=== PATIENT | female | born 1985 | race Hispanic/Latino ===

== ENCOUNTER 2018-11-11 19:01 | Emergency (ER) | payer OTHER ==
[2018-11-11] MEDS ORDERED: NA CHLORIDE 0.9% 1,000 ML ONE ×2 (19:52→19:59)
[2018-11-11] MEDS ORDERED: ONDANSETRON 4 MG/2 ML VIAL ONE (19:59)
[2018-11-11 20:06] LABS: Absolute Lymphocytes (CBC) 1.3 K/uL (0.7-4.9); Absolute Monocytes 0.6 K/uL (0.1-1.3); Absolute Neutrophil 3.4 K/uL (1.8-8.0); Basophils % 0.2 % (0-1.3); Eosinophils % 0.6 % (0-4.4); Hematocrit 35.7 % (36.0-45.0); Lymphocytes % 24.8 % (15.3-44.8); MPV 9.7 fL (7.6-11.3); Monocytes % 11.2 % (3.3-12.3); RBC Red Blood Cell Count 3.92 M/uL (3.86-4.86)
[2018-11-11 20:36] LABS: BUN Blood Urea Nitrogen 4 mg/dL (7-18); Bicarbonate 24 mmol/L (21-32); Glucose Level 86 mg/dL (74-106); HCG, Quantitative 30743 mIU/mL (1-3); Potassium 3.5 mmol/L (3.5-5.1); Sodium Level 138 mmol/L (136-145)
[2018-11-11 21:08] LABS: Urine Specific Gravity 1.015 (1.005-1.030)
[2018-11-11 21:09] LABS: Urine Blood NEGATIVE (NEG); Urine Glucose NEGATIVE (NEG); Urine Protein NEGATIVE (NEG)
--- NOTE | 2018-11-11 21:31 | ER ---
Nurse's Notes [facility] Name: Tawnya Vogel Age: 33 yrs Sex: Female : 1985 Arrival Date: 11/11/2018 Time: 19:03 Bed 13 Private MD: Lyric Aguirre Diagnosis: Dizziness and giddiness; related conditions, unspecified, second trimester;Vomiting;Diarrhea, unspecified Presentation: 11/11 19:05 Presenting complaint: Patient states: abdominal cramping, nausea, vomiting, cough, ch light headed, for the past 2 days. Transition of care: patient was not received from another setting of care. Onset of symptoms was November 09, 2018. Risk Assessment: Do you want to hurt yourself or someone else? Patient reports no desire to harm self or others. Initial Sepsis Screen: Does the patient meet any 2 criteria? No. Patient's initial sepsis screen is negative. Does the patient have a suspected source of infection? No. Patient's initial sepsis screen is negative. Care prior to arrival: None. 19:05 Method Of Arrival: Ambulatory 19:05 Acuity: ANTONIO 3 ch Triage Assessment: 19:06 General: Appears in no apparent distress. comfortable, Behavior is calm, cooperative, ch appropriate for age. Pain: Complains of pain in abdomen. Pain: Complains of pain in head, abdomen and back Pain currently is 6 out of 10 on a pain scale. GI: Reports lower abdominal pain, upper abdominal pain, nausea, vomiting. 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 - Social history:: Smoking status: Patient/guardian denies using tobacco, Patient/guardian denies using alcohol, street drugs. - Ebola Screening: : Patient negative for fever greater than or equal to 101.5 degrees Fahrenheit, and additional compatible Ebola Virus Disease symptoms Patient denies exposure to infectious person Patient denies travel to an Ebola-affected area in the 21 days before illness onset No symptoms or risks identified at this time. - Family history:: not pertinent. Screenin:05 Abuse screen: Denies threats or abuse. Nutritional screening: No deficits noted. tl2 Tuberculosis screening: No symptoms or risk factors identified. Fall Risk None identified. Assessment: 20:00 General: Appears in no apparent distress. uncomfortable, Behavior is calm, cooperative, tl2 appropriate for age. General: pt reports dizziness and vomiting if she moves her head too fast. Pain: Complains of pain in headache. Neuro: Level of Consciousness is awake, alert, obeys commands, Oriented to person, place, time, situation, Reports dizziness, headache. Cardiovascular: Denies chest pain. Respiratory: Airway is patent Respiratory effort is even, unlabored, Respiratory pattern is regular, symmetrical. GI: Abdomen is non-distended, Reports nausea, vomiting. Derm: Skin is pink, warm \T\ dry. 21:26 Reassessment: Patient appears in no apparent distress at this time. Patient and/or tl2 family updated on plan of care and expected duration. Pain level reassessed. Patient is alert, oriented x 3, equal unlabored respirations, skin warm/dry/pink. Awaiting lab results and further orders. 21:26 Reassessment:. tl2 21:50 Reassessment: Patient appears in no apparent distress at this time. Patient and/or tl2 family updated on plan of care and expected duration. Pain level reassessed. Patient is alert, oriented x 3, equal unlabored respirations, skin warm/dry/pink. pt verbalized understanding of discharge instructions, need for follow up and prescription usage Patient states feeling better. Patient states symptoms have improved. Vital Signs: 19:06 BP 138 / 100; Pulse 122; Resp 18; Temp 98.8; Pulse Ox 100% on R/A; Weight 101.6 kg; ch Height 4 ft. 11 in. (149.86 cm); Pain 6/10; 20:07 BP 123 / 69; Pulse 97; Resp 18; Pulse Ox 100% on R/A; tl2 21:50 BP 141 / 86; Pulse 72; Resp 18; Pulse Ox 100% on R/A; tl2 19:06 Body Mass Index 45.24 (101.60 kg, 149.86 cm) ch Vitals: 20:05 Heart Tones 150. tl2 ED Course: 19:03 Patient arrived in ED. as 19:03 Lyric Aguirre MD is Private Physician. as 19:06 Triage completed. 19:06 Arm band placed on left wrist. Patient placed in an exam room, on a stretcher. 19:37 Initial lab(s) drawn, by ri, sent to lab. Urine collected: clean catch specimen, clear. ms Inserted saline lock: 20 gauge in right antecubital area, using aseptic technique. Blood collected. 19:40 Elmira Guo RN is Primary Nurse. tl2 19:42 Byron Jones MD is Attending Physician. romulo 20:05 Patient has correct armband on for positive identification. Bed in low position. Call tl2 light in reach. Side rails up X 1. 21:29 Lyric Aguirre MD is Referral Physician. romulo 21:50 No provider procedures requiring assistance completed. IV discontinued, intact, tl2 bleeding controlled, No redness/swelling at site. Pressure dressing applied. Administered Medications: 19:48 Drug: NS 0.9% 1000 ml Route: IV; Rate: 1 bolus; Site: right antecubital; tl1 21:52 Follow up: IV Status: Completed infusion; IV Intake: 1000ml tl2 19:58 Drug: NS 0.9% 1000 ml Route: IV; Rate: 1 bolus; Site: right antecubital; tl1 21:51 Follow up: IV Status: Completed infusion; IV Intake: 1000ml tl2 19:58 Drug: Zofran 4 mg Route: IVP; Infused Over: 2 mins; Site: right antecubital; tl1 21:52 Follow up: Response: No adverse reaction; Nausea is decreased tl2 Intake: 21:51 IV: 1000ml; Total: 1000ml. tl2 21:52 IV: 1000ml; Total: 2000ml. tl2 Outcome: 21:30 Discharge ordered by . romulo 21:50 Discharged to home ambulatory, with family. tl2 21:50 Condition: stable 21:50 Discharge instructions given to patient, Instructed on discharge instructions, follow up and referral plans. medication usage, Demonstrated understanding of instructions, follow-up care, medications, Prescriptions given X 1. 21:53 Patient left the ED. tl2 Signatures: Ninfa Peterson RN RN Byron Jones MD MD cha Martinez, Amelia as Solis, Maria ms Lasagna, Tonya, RN RN tl1 Elmira Guo, RN RN tl2
--- NOTE | 2018-11-11 21:31 | EDPHYS ---
Physician Documentation [facility] Name: Tawnya Vogel Age: 33 yrs Sex: Female : 1985 Arrival Date: 11/11/2018 Time: 19:03 Bed 13 Private MD: Lyric Aguirre ED Physician Byron Jones HPI: 11/11 21:25 This 33 yrs old Female presents to ER via Ambulatory with complaints of romulo Dizziness, Vomiting, Headache, Abdominal Pain. 21:25 The patient presents with dizziness. Onset: The symptoms/episode began/occurred 3 romulo day(s) ago. Context: occurred while the patient was walking. Modifying factors: The symptoms are alleviated by standing slowly. Associated signs and symptoms: Pertinent positives: nausea, vomiting. Severity of symptoms: At their worst the symptoms were mild in the emergency department the symptoms are unchanged. Patient's baseline: Neuro: alert and fully oriented. The patient has not experienced similar symptoms in the past. 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 - Social history:: Smoking status: Patient/guardian denies using tobacco, Patient/guardian denies using alcohol, street drugs. - Ebola Screening: : Patient negative for fever greater than or equal to 101.5 degrees Fahrenheit, and additional compatible Ebola Virus Disease symptoms Patient denies exposure to infectious person Patient denies travel to an Ebola-affected area in the 21 days before illness onset No symptoms or risks identified at this time. - Family history:: not pertinent. ROS: 21:25 Constitutional: Negative for fever, chills, and weight loss, Eyes: Negative for injury, romulo pain, redness, and discharge, ENT: Negative for injury, pain, and discharge, Neck: Negative for injury, pain, and swelling, Cardiovascular: Negative for chest pain, palpitations, and edema, Respiratory: Negative for shortness of breath, cough, wheezing, and pleuritic chest pain, Back: Negative for injury and pain, : Negative for injury, bleeding, discharge, and swelling, MS/Extremity: Negative for injury and deformity, Skin: Negative for injury, rash, and discoloration, Neuro: Negative for headache, weakness, numbness, tingling, and seizure, Psych: Negative for depression, anxiety, suicide ideation, homicidal ideation, and hallucinations, Allergy/Immunology: Negative for hives, rash, and allergies, Endocrine: Negative for neck swelling, polydipsia, polyuria, polyphagia, and marked weight changes, Hematologic/Lymphatic: Negative for swollen nodes, abnormal bleeding, and unusual bruising. 21:25 Abdomen/GI: Positive for nausea and vomiting, diarrhea. Exam: 21:25 Constitutional: This is a well developed, well nourished patient who is awake, alert, romulo and in no acute distress. Head/Face: Normocephalic, atraumatic. Eyes: Pupils equal round and reactive to light, extra-ocular motions intact. Lids and lashes normal. Conjunctiva and sclera are non-icteric and not injected. Cornea within normal limits. Periorbital areas with no swelling, redness, or edema. ENT: Nares patent. No nasal discharge, no septal abnormalities noted. Tympanic membranes are normal and external auditory canals are clear. Oropharynx with no redness, swelling, or masses, exudates, or evidence of obstruction, uvula midline. Mucous membranes moist. Neck: Trachea midline, no thyromegaly or masses palpated, and no cervical lymphadenopathy. Supple, full range of motion without nuchal rigidity, or vertebral point tenderness. No Meningismus. Chest/axilla: Normal chest wall appearance and motion. Nontender with no deformity. No lesions are appreciated. Cardiovascular: Regular rate and rhythm with a normal S1 and S2. No gallops, murmurs, or rubs. Normal PMI, no JVD. No pulse deficits. Respiratory: Lungs have equal breath sounds bilaterally, clear to auscultation and percussion. No rales, rhonchi or wheezes noted. No increased work of breathing, no retractions or nasal flaring. Abdomen/GI: Soft, non-tender, with normal bowel sounds. No distension or tympany. No guarding or rebound. No evidence of tenderness throughout. Back: No spinal tenderness. No costovertebral tenderness. Full range of motion. Female : Normal external genitalia. Skin: Warm, dry with normal turgor. Normal color with no rashes, no lesions, and no evidence of cellulitis. MS/ Extremity: Pulses equal, no cyanosis. Neurovascular intact. Full, normal range of motion. Neuro: Awake and alert, GCS 15, oriented to person, place, time, and situation. Cranial nerves II-XII grossly intact. Motor strength 5/5 in all extremities. Sensory grossly intact. Cerebellar exam normal. Normal gait. Psych: Awake, alert, with orientation to person, place and time. Behavior, mood, and affect are within normal limits. Vital Signs: 19:06 BP 138 / 100; Pulse 122; Resp 18; Temp 98.8; Pulse Ox 100% on R/A; Weight 101.6 kg; ch Height 4 ft. 11 in. (149.86 cm); Pain 6/10; 20:07 BP 123 / 69; Pulse 97; Resp 18; Pulse Ox 100% on R/A; tl2 21:50 BP 141 / 86; Pulse 72; Resp 18; Pulse Ox 100% on R/A; tl2 19:06 Body Mass Index 45.24 (101.60 kg, 149.86 cm) MDM: 19:42 Patient medically screened. [facility] 21:29 Data reviewed: vital signs, nurses notes, lab test result(s), radiologic studies, [facility] 150b/m. 11/11 19:40 Order name: Urine Dipstick--Ancillary (enter results); Complete Time: 21:11 wa 11/11 19:40 Order name: Urine --Ancillary (enter results); Complete Time: 21:11 wa 11/11 19:40 Order name: Quantitative Hcg; Complete Time: 21:11 [facility] 11/11 19:40 Order name: Basic Metabolic Panel; Complete Time: 21:11 [facility] 11/11 19:40 Order name: CBC with Diff; Complete Time: 21:11 [facility] 11/11 19:40 Order name: Urine Test (obtain specimen); Complete Time: 19:41 2 11/11 19:40 Order name: IV Saline Lock; Complete Time: 19:41 2 11/11 19:40 Order name: Labs collected and sent; Complete Time: 19:41 2 11/11 19:40 Order name: NPO; Complete Time: 19:41 2 11/11 19:40 Order name: Urine Dipstick-Ancillary (obtain specimen); Complete Time: 19:41 tl2 11/11 19:43 Order name: FHT's; Complete Time: 20:07 [facility] Administered Medications: 19:48 Drug: NS 0.9% 1000 ml Route: IV; Rate: 1 bolus; Site: right antecubital; tl1 21:52 Follow up: IV Status: Completed infusion; IV Intake: 1000ml tl2 19:58 Drug: NS 0.9% 1000 ml Route: IV; Rate: 1 bolus; Site: right antecubital; tl1 21:51 Follow up: IV Status: Completed infusion; IV Intake: 1000ml tl2 19:58 Drug: Zofran 4 mg Route: IVP; Infused Over: 2 mins; Site: right antecubital; tl1 21:52 Follow up: Response: No adverse reaction; Nausea is decreased tl2 Disposition: 11/11/18 21:30 Discharged to Home. Impression: Dizziness and giddiness, related conditions, unspecified, second trimester, Vomiting, Diarrhea, unspecified. - Condition is Stable. - Discharge Instructions: Abdominal Pain During , Food Choices to Help Relieve Diarrhea, Adult, Diarrhea, Adult, Dizziness, Nausea and Vomiting, Adult, Nausea and Vomiting, Adult, [id number], Diarrhea, Adult, [id number], Abdominal Pain During , [id number], Pelvic Rest, Dizziness, [id number]. - Prescriptions for Diclegis 10- 10 mg Oral tablet,delayed release (DR/EC) - take 1 tablet by ORAL route 3 times per day and 2 tablets at bedtime; 60 tablet. - Medication Reconciliation Form, Thank You Letter, Antibiotic Education, Prescription Opioid Use form. - Follow up: Lyric Aguirre MD; When: 2 - 3 days; Reason: Recheck today's complaints, Continuance of care, Re-evaluation by your physician. - Problem is new. - Symptoms have improved. Signatures: Dispatcher [employer] EDNinfa He, RN Byron Padilla ch, MD MD cha Lasagna, Tonya RN RN tl1 Elmira Guo RN RN tl2 Corrections: (The following items were deleted from the chart) 21:53 21:30 11/11/2018 21:30 Discharged to Home. Impression: Dizziness and giddiness; tl2 related conditions, unspecified, second trimester; Vomiting; Diarrhea, unspecified. Condition is Stable. Forms are Medication Reconciliation Form, Thank You Letter, Antibiotic Education, Prescription Opioid Use. Follow up: Lyric Aguirre; When: 2 - 3 days; Reason: Recheck today's complaints, Continuance of care, Re-evaluation by your physician. Problem is new. Symptoms have improved. romulo
[2018-11-11 21:58] VITALS: TEMP 98.8; O2SAT 100
[2018-11-11 22:01] VITALS: BP 141/86
== END 2018-11-11 21:53 | disposition home or self-care (01) ==
LOC: ER 19:01
DX: O21.9 Vomiting of pregnancy, unspecified (principal); R19.7 Diarrhea, unspecified; Z88.0 Allergy status to penicillin; Z88.5 Allergy status to narcotic agent
CPT/HCPCS: 36415; 80048; 81003; 81025; 84702; 85025; 96361; 96374; 99284; J2405; J7030

== ENCOUNTER 2019-04-12 10:04 | Inpatient (IN) | payer OTHER ==
[2019-04-11 16:45] LABS: RPR Titer ND
[2019-04-11 16:54] LABS: Absolute Lymphocytes (CBC) 1.9 K/uL (0.7-4.9); Absolute Monocytes 0.5 K/uL (0.1-1.3); Absolute Neutrophil 4.8 K/uL (1.8-8.0); Basophils % 0.3 % (0-1.3); Eosinophils % 0.6 % (0-4.4); Hematocrit 34.7 % (36.0-45.0); Lymphocytes % 26.2 % (15.3-44.8); Monocytes % 6.6 % (3.3-12.3); RBC Red Blood Cell Count 3.99 M/uL (3.86-4.86)
[2019-04-11 16:55] LABS: Urine Appearance CLOUDY; Urine Bilirubin NEGATIVE (NEG); Urine Blood NEGATIVE (NEG); Urine Color YELLOW; Urine Glucose NEGATIVE (NEG); Urine Protein NEGATIVE (NEG); Urine Specific Gravity 1.015 (1.005-1.030); Urine Urobilinogen 0.2 mg/dL (0.2-1.0)
[2019-04-11 16:58] LABS: Urine Microscopic Reflex ORDER UMIC
[2019-04-11 17:06] LABS: Urine Bacteria 20-50 /HPF (<20); Urine Culture Reflex Order REFLEXED; Urine Mucus 2+ /HPF (NONE SEEN); Urine RBC <5 /HPF (NONE SEEN)
[2019-04-11 20:59] LABS: RPR (Rapid Plasma Reagin) NON-REACT (NON-REACT)
[~2019-04-12 10:04] MED LIST: CEFAZOLIN 3 GM in NA CHLORIDE 0.9% 100 ML IVPB ONE
[2019-04-12] MEDS ORDERED: NA CIT/CITRIC AC 30 ML ORAL UDC PO ONE (10:45)
[2019-04-12] MEDS ORDERED: Ringers Lactate 1,000 ML IV PRN (10:51)
[2019-04-12] MEDS ORDERED: METOCLOPRAMIDE 10 MG/2mL INJ IV SCH (11:00)
[2019-04-12] MEDS ORDERED: Ringers Lactate 1,000 ML IV SCH (11:00)
[2019-04-12] MEDS ORDERED: FAMOTIDINE 20 MG/2 ML VIAL IV ONE (11:17)
[2019-04-12] MEDS ORDERED: CARBOPROST TROME 250 MCG/ML IM ONE (11:17)
[2019-04-12 11:36] VITALS: BMI 45.4
--- NOTE | 2019-04-12 11:36 | EKG ---
Test Date: 2019-04-12 Test Time: 10:02:22 Operating Room Technician: ROBERTO MEASUREMENT RESULTS: Intervals: Rate: 111 AK: 156 QRSD: 80 QT: 322 QTc: 437 [place]: P: 28 AK: 156 QRS: -17 T: 16 INTERPRETIVE STATEMENTS: Sinus tachycardia Moderate voltage criteria for LVH, may be normal variant Borderline ECG No previous ECG available for comparison Electronically Signed On 04-12-19 11:35:26 CDT by Matheus Tarango
[2019-04-12] MEDS ORDERED: FENTANYL CITR 250 MCG/5 ML ONE (11:45)
[2019-04-12] MEDS ORDERED: Phenylephrine HCl 10 MG/ML 1 ML VIAL ONE (11:45)
[2019-04-12] MEDS ORDERED: EPHEDRINE SULF 50 MG/ML VIAL ONE (11:45)
[2019-04-12] MEDS ORDERED: MORPHINE SULFATE/PF 1 MG/ML (10 ML AMP) ONE (11:45)
[2019-04-12] MEDS ORDERED: NS 0.9% VIAL 20 ML ONE (11:46)
[2019-04-12] MEDS ORDERED: OXYTOCIN 10 UNIT/ML ML IV ONE (11:46)
[2019-04-12] MEDS ORDERED: METHYLERGONOVINE 0.2MG/ML AMP IM ONE (12:51)
[2019-04-12] MEDS ORDERED: ACETAMINOPHEN 500 MG TAB PO PRN (13:22)
[2019-04-12] MEDS ORDERED: BISACODYL 10 MG RECTAL SUPP RECT PRN (13:22)
[2019-04-12] MEDS ORDERED: ONDANSETRON 4 MG (ODT) TAB PO PRN (13:22)
[2019-04-12] MEDS ORDERED: DOCUSATE NA/SENNA CONC 1 TAB PO PRN (13:22)
[2019-04-12] MEDS ORDERED: METHYLERGONOVINE 0.2 MG TAB PO PRN (13:22)
[2019-04-12] MEDS ORDERED: KETOROLAC 30 MG/ML INJ IV PRN (13:24)
[2019-04-12] MEDS ORDERED: IBUPROFEN 200 MG TAB PO PRN (13:24)
[2019-04-12] MEDS: Oxycodone HCl/Acetaminophen 1 TAB TAB PO PRN (20:20)
--- NOTE | 2019-04-12 22:19 | P.OP ---
Radiopharmacist: Chelsea Bernard Preoperative diagnosis: 37 weeks 5 days gestation with severe proteinurina, preeclampsia and breech Postoperative diagnosis: same Primary procedure: Primary low transverse section Secondary procedure: none Anesthesia: Spinal Estimated blood loss: 800cc Specimen: cord blood, placenta Findings: footling breech presentation Operative Technique: The patient was taken to the operating room where spinal anesthesia was placed. 3 grams of ancef were given to the patient. Abdominal skin was taped back. The patient was prepped and draped in the usual sterile fashion in the dorsal supine position with a left-anderson tilt. A Pfannenstiel skin incision was made with the scalpel and carried through to the underlying layer of fascia using the scalpel and Bovie. The fascia was incised in the midline and extended laterally using Burns scissors. Letty clamps were used to elevate the superior aspect of the fascial incision, which was elevated, and the underlying rectus muscles were dissected off bluntly and using Burns scissors. Attention was then turned to the inferior aspect of the fascial incision, which in similar fashion was grasped with Letty clamps, elevated, and the underlying rectus muscles were dissected off bluntly and using Burns scissors. The rectus muscles were dissected in the midline. The peritoneum was bluntly dissected, entered, and extended superiorly and inferiorly with good visualization of the bladder. The bladder blade was inserted. The vesicouterine peritoneum was identified with pickups and entered sharply using Metzenbaum scissors. This incision was extended laterally and the bladder flap was created digitally. The bladder blade was reinserted. The lower uterine segment was incised in a transverse fashion using the scalpel and extended using manual traction. Clear fluid was noted. The was subsequently delivered atraumatically in footling breech presentation. The nose and mouth were bulb suctioned. The cord was clamped and cut. The infant was subsequently handed to the awaiting nursery nurse. Next, cord blood was obtained.The placenta was removed spontaneously intact with a 3-vessel cord noted. The uterus was not exteriorized due to large size of uterus from fibroids as well as operative difficulty due to obesity. The uterine incision was repaired in 2 layers using 0 vicryl suture. Hemostasis was visualized. The bladder flap was reapproximated using 3.0 vicryl. The uterine incision was reexamined and was noted to be hemostatic. The rectus muscles were reapproximated in the midline using 0 Vicryl. The fascia was closed with 1 Vicryl, the subcutaneous layer was closed with 2-0 plain gut, and the skin was closed with 3.0 vicryl on a Jean Claude needle. Sponge, lap, and instrument counts were correct x2. The patient was stable at the completion of the procedure and was subsequently transferred to the recovery room in stable condition. Complications: None Drain(s): Urinary catheter Transferred to: Recovery Room Condition: Good
[2019-04-12] MEDS ORDERED: Ringers Lactate 1,000 ML IV ONE (23:17)
[2019-04-13] MEDS ORDERED: Ringers Lactate 1,000 ML IV ONE ×2 (00:13→06:52)
[2019-04-13] MEDS: ENOXAPARIN 40 MG/0.4 ML SQ SCH (01:19)
[2019-04-13] MEDS: Oxycodone HCl/Acetaminophen 1 TAB TAB PO PRN ×3 (03:37→22:13)
[2019-04-13 04:43] LABS: Absolute Lymphocytes (CBC) 1.4 K/uL (0.7-4.9); Absolute Monocytes 0.8 K/uL (0.1-1.3); Absolute Neutrophil 7.4 K/uL (1.8-8.0); Basophils % 0.3 % (0-1.3); Eosinophils % 0.2 % (0-4.4); Hematocrit 28.5 % (36.0-45.0); Lymphocytes % 14.4 % (15.3-44.8); MPV 9.2 fL (7.6-11.3); Monocytes % 8.5 % (3.3-12.3); RBC Red Blood Cell Count 3.28 M/uL (3.86-4.86)
[2019-04-13] MEDS ORDERED: FAMOTIDINE 20 MG/2 ML VIAL IV ONE (10:46)
--- NOTE | 2019-04-13 22:06 | P.PN ---
Date of Service: 04/13/19 Patient is s/p primary section post op day 1. She is doing well. She is tolerating a regular diet, voiding without difficulty , and ambulating. Her pain is well controlled. She received lovenox 12 hours postop. Selected Entries 04/13/19 04/13/19 04/13/19 04:00 04:37 07:58 Temperature 98.0 F 97.5 F Pulse Rate 107 H 119 H Respiratory 18 16GEN: Rate Blood Pressure 133/59 L 125/58 L Pain Level 7 0 0 Laboratory Tests 04/11/19 04/13/19 16:33 04:29 WBC 7.2 9.7 D Hgb 11.6 L 9.7 L Hct 34.7 L 28.5 L D Plt Count 261 211 GEN: resting comfortably Head/Neck: NCAT, supple Resp: symmetric non-labored breathing Abdomen: obese, soft, NT, ND, dressing in place Extremities: +1 edema bilaterally 33 y/o s/p primary section, morbidly obese female who is post op day 1 and doing well. Complicated by anemia. - continue pain management - regular diet - ambulate - dwyer and IV removed - possible d/c home tomorrow
[2019-04-14] MEDS ORDERED: KETOROLAC 30 MG/ML INJ IM ONE (07:21)
[2019-04-14] MEDS ORDERED: ACETAMINOPHEN 325 MG TABLET PO ONE (07:21)
[2019-04-14 07:59] LABS: Absolute Lymphocytes (CBC) 1.5 K/uL (0.7-4.9); Absolute Monocytes 0.9 K/uL (0.1-1.3); Absolute Neutrophil 7.6 K/uL (1.8-8.0); Basophils % 0.2 % (0-1.3); Eosinophils % 0.2 % (0-4.4); Hematocrit 26.8 % (36.0-45.0); Lymphocytes % 15.2 % (15.3-44.8); MPV 9.6 fL (7.6-11.3); Monocytes % 8.7 % (3.3-12.3)
[2019-04-14] MEDS: ENOXAPARIN 40 MG/0.4 ML SQ SCH (09:45)
[2019-04-14] MEDS: CLINDAMYCIN INJ 900 MG in NA CHLORIDE 0.9% 50 ML IV SCH ×2 (09:45→17:00)
[2019-04-14] MEDS ORDERED: Ringers Lactate 1,000 ML IV ONE (09:48)
[2019-04-14] MEDS ORDERED: CEFAZOLIN 2 GM in NA CHLORIDE 0.9% 100 ML IVPB ONE (10:10)
[2019-04-14] MEDS ORDERED: CEFAZOLIN/SWI 2gm 2 GM/20 ML SYR IV ONE (10:45)
[2019-04-14] MEDS ORDERED: Ringers Lactate 1,000 ML IV SCH (11:00)
--- NOTE | 2019-04-14 11:05 | RAD REPORT ---
EXAM DESCRIPTION: RAD - Chest Pa And Lat (2 Views) - 04/14/2019 10:37 am CLINICAL HISTORY: fever of unknown origin Chest pain. COMPARISON: No comparisons FINDINGS: The lungs are clear. The heart is mildly prominent in size. No displaced fractures.
[2019-04-14 17:19] LABS: Absolute Lymphocytes (CBC) 1.4 K/uL (0.7-4.9); Absolute Monocytes 0.7 K/uL (0.1-1.3); Absolute Neutrophil 6.7 K/uL (1.8-8.0); Basophils % 0.2 % (0-1.3); Eosinophils % 0.1 % (0-4.4); Hematocrit 27.3 % (36.0-45.0); Lymphocytes % 15.8 % (15.3-44.8); MPV 9.3 fL (7.6-11.3); Monocytes % 7.5 % (3.3-12.3); RBC Red Blood Cell Count 3.11 M/uL (3.86-4.86)
[2019-04-14] MEDS ORDERED: FERROUS SULFATE 325 MG TAB PO SCH (21:00)
--- NOTE | 2019-04-14 22:55 | P.PN ---
Date of Service: 04/14/19 Patient is s/p primary section post op day 2. She has been experiencing fever post op. She is tolerating a regular diet, voiding without difficulty, and ambulating minimally. Her pain is well controlled. She is receiving lovenox for DVT prophylaxis. She has been receiving antibiotics. Chest x ray was performed and was normal. She states she had some lose bowel movements today. Denies cough or cold symptoms. States she feels tired and weak. Selected Entries 04/14/19 04/14/19 04/14/19 16:45 17:15 20:00 Temperature 102.8 F H Pulse Rate 125 H 117 H 112 H Respiratory 18 18 18 Rate Blood Pressure 152/89 H 137/76 125/71 Pain Level 4 0 04/14/19 04/14/19 20:50 21:50 Temperature 102.8 F H 100.9 F Pulse Rate Respiratory Rate Blood Pressure Pain Level Laboratory Tests 04/13/19 04/14/19 04/14/19 04:29 07:33 17:02 WBC 9.7 D 10.0 8.8 Hgb 9.7 L 9.2 L 9.7 L Hct 28.5 L D 26.8 L 27.3 L Plt Count 211 235 239 GEN: resting comfortably Head/Neck: NCAT, supple Resp: symmetric non-labored breathing Abdomen: obese, soft, NT, ND, dressing in place Extremities: +1 edema bilaterally 33 y/o s/p primary section, morbidly obese female who is post op day 1 and doing well. Complicated by anemia. - continue pain management - regular diet - ambulate - dwyer and IV removed - possible d/c home tomorrow
[2019-04-15] MEDS: CLINDAMYCIN INJ 900 MG in NA CHLORIDE 0.9% 50 ML IV SCH (01:00)
[2019-04-15 02:53] LABS: HBsAG Nonreactive (Nonreactive)
[2019-04-15 06:38] LABS: Absolute Lymphocytes (CBC) 1.6 K/uL (0.7-4.9); Absolute Monocytes 0.7 K/uL (0.1-1.3); Absolute Neutrophil 5.4 K/uL (1.8-8.0); Basophils % 0.1 % (0-1.3); Eosinophils % 0.4 % (0-4.4); Hematocrit 24.2 % (36.0-45.0); Lymphocytes % 21.1 % (15.3-44.8); MPV 8.9 fL (7.6-11.3); Monocytes % 9.6 % (3.3-12.3)
[2019-04-15 06:58] LABS: ALT/SGPT 9 U/L (12-78); AST/SGOT 13 U/L (15-37); Albumin 1.8 g/dL (3.4-5.0); Alkaline Phosphatase 89 U/L (45-117); BUN Blood Urea Nitrogen 5 mg/dL (7-18); Bicarbonate 25 mmol/L (21-32); Bilirubin Total 0.3 mg/dL (0.2-1.0); Glucose Level 90 mg/dL (74-106); Potassium 3.6 mmol/L (3.5-5.1); Protein, Total 5.7 g/dL (6.4-8.2); Sodium Level 141 mmol/L (136-145)
[2019-04-15 08:27] VITALS: BP 121/77; TEMP 98.7
[2019-04-15] MEDS ORDERED: PRENATAL VITAMIN PO SCH (09:00)
== END 2019-04-15 11:20 | disposition home or self-care (01) | DRG 787 ==
LOC: 2ND-WC 10:04
PROVIDERS: ADMIT Student in an Organized Health Care Education/Training Program; ATTEND Student in an Organized Health Care Education/Training Program
PROC: 10D00Z1 Extraction of Products of Conception, Low, Open Approach (ICD-10-PCS; principal; 2019-04-12 12:00)
DX: O32.8XX0 Maternal care for other malpresentation of fetus, not applicable or unspecified (principal); O86.4 Pyrexia of unknown origin following delivery; O34.13 Maternal care for benign tumor of corpus uteri, third trimester; O99.214 Obesity complicating childbirth; E66.01 Morbid (severe) obesity due to excess calories; O99.02 Anemia complicating childbirth; D64.89 Other specified anemias; O14.94 Unspecified pre-eclampsia, complicating childbirth; O24.420 Gestational diabetes mellitus in childbirth, diet controlled; Z3A.37 37 weeks gestation of pregnancy; Z37.0 Single live birth
CPT/HCPCS: 36415; 71046; 80053; 81003; 81015; 85025; 86592; 86850; 86900; 86901; 87086; 87088; 87340; 88307; 93005; J0690; J1650; J2210; J2370; J2590; J2765; J3010

== ENCOUNTER 2019-05-19 19:33 | Emergency (ER) | payer OTHER ==
[2019-05-19 20:48] LABS: Absolute Lymphocytes (CBC) 2.3 K/uL (0.7-4.9); Basophils % 0.6 % (0-1.3); Eosinophils % 2.7 % (0-4.4); Hematocrit 36.3 % (36.0-45.0); MPV 9.9 fL (7.6-11.3); Monocytes % 7.8 % (3.3-12.3); RBC Red Blood Cell Count 4.11 M/uL (3.86-4.86)
[2019-05-19 21:00] LABS: BUN Blood Urea Nitrogen 6 mg/dL (7-18); Bicarbonate 32 mmol/L (21-32); Glucose Level 101 mg/dL (74-106); Sodium Level 143 mmol/L (136-145)
[2019-05-19] MEDS ORDERED: KETOROLAC 30 MG/ML INJ ONE (21:35)
[2019-05-19 21:47] LABS: Urine Blood TRACE (NEG); Urine Glucose NEGATIVE (NEG); Urine Protein NEGATIVE (NEG); Urine Specific Gravity 1.025 (1.005-1.030); Urine pH 6.5 (5.0-7.0)
--- NOTE | 2019-05-19 22:50 | EDPHYS ---
Physician Documentation [facility] Name: Tawnya Vogel Age: 33 yrs Sex: Female : 1985 Arrival Date: 05/19/2019 Time: 19:37 Bed 20 Private MD: ED Physician Jonathan Driscoll HPI: 05/19 21:19 This 33 yrs old Female presents to ER via Ambulatory with complaints of kb Abdominal Pain. 21:19 The patient presents with abdominal pain in the lower abdomen. Onset: The kb symptoms/episode began/occurred today. The symptoms do not radiate. Associated signs and symptoms: none. The symptoms are described as constant. Modifying factors: The symptoms are alleviated by nothing, the symptoms are aggravated by nothing. Severity of pain: At its worst the pain was moderate in the emergency department the pain is unchanged. The patient has not experienced similar symptoms in the past. The patient has not recently seen a physician. 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 - Social history:: Smoking status: Patient/guardian denies using tobacco. - Ebola Screening: : No symptoms or risks identified at this time. ROS: 21:19 Constitutional: Negative for fever, chills, and weight loss, Cardiovascular: Negative kb for chest pain, palpitations, and edema, Respiratory: Negative for shortness of breath, cough, wheezing, and pleuritic chest pain, Back: Negative for injury and pain, : Negative for injury, bleeding, discharge, and swelling, MS/Extremity: Negative for injury and deformity, Skin: Negative for injury, rash, and discoloration, Neuro: Negative for headache, weakness, numbness, tingling, and seizure. 21:19 Abdomen/GI: Positive for abdominal pain, Negative for nausea, vomiting, and diarrhea. Exam: 21:19 Constitutional: This is a well developed, well nourished patient who is awake, alert, kb and in no acute distress. Head/Face: Normocephalic, atraumatic. Neck: Trachea midline, no thyromegaly or masses palpated, and no cervical lymphadenopathy. Supple, full range of motion without nuchal rigidity, or vertebral point tenderness. No Meningismus. Chest/axilla: Normal chest wall appearance and motion. Nontender with no deformity. No lesions are appreciated. Cardiovascular: Regular rate and rhythm with a normal S1 and S2. No gallops, murmurs, or rubs. Normal PMI, no JVD. No pulse deficits. Respiratory: Lungs have equal breath sounds bilaterally, clear to auscultation and percussion. No rales, rhonchi or wheezes noted. No increased work of breathing, no retractions or nasal flaring. Back: No spinal tenderness. No costovertebral tenderness. Full range of motion. Skin: Warm, dry with normal turgor. Normal color with no rashes, no lesions, and no evidence of cellulitis. MS/ Extremity: Pulses equal, no cyanosis. Neurovascular intact. Full, normal range of motion. Neuro: Awake and alert, GCS 15, oriented to person, place, time, and situation. Cranial nerves II-XII grossly intact. Motor strength 5/5 in all extremities. Sensory grossly intact. Cerebellar exam normal. Normal gait. 21:19 Abdomen/GI: Inspection: abdomen appears normal, Bowel sounds: normal, in all quadrants, Palpation: soft, in all quadrants, mild abdominal tenderness, in the right lower quadrant and left lower quadrant. Vital Signs: 19:56 BP 156 / 83; Pulse 99; Resp 18; Temp 98.2(O); Pulse Ox 100% on R/A; Weight 95.25 kg ak1 (R); Height 4 ft. 11 in. (149.86 cm) (R); Pain 8/10; 20:15 BP 130 / 84; Pulse 81; Resp 19 S; Pulse Ox 99% on R/A; cc3 21:30 BP 130 / 71; Pulse 80; Resp 17 S; Pulse Ox 100% on R/A; cc3 22:05 BP 137 / 86; Pulse 86; Resp 18 S; Pulse Ox 100% on R/A; cc3 23:00 BP 129 / 87; Pulse 85; Resp 16 S; Pulse Ox 100% on R/A; cc3 19:56 Body Mass Index 42.41 (95.25 kg, 149.86 cm) ak1 MDM: 19:49 Patient medically screened. kb 21:18 Data reviewed: vital signs, nurses notes. Data interpreted: Pulse oximetry: on room air kb is 100 %. Interpretation: normal. 22:49 Counseling: I had a detailed discussion with the patient and/or guardian regarding: the kb historical points, exam findings, and any diagnostic results supporting the discharge/admit diagnosis, lab results, radiology results, the need for outpatient follow up, a family practitioner, to return to the emergency department if symptoms worsen or persist or if there are any questions or concerns that arise at home. 05/19 20:28 Order name: CBC with Diff; Complete Time: 20:51 kb 05/19 20:28 Order name: Basic Metabolic Panel; Complete Time: 21:04 kb 05/19 21:29 Order name: Urine Dipstick--Ancillary (enter results); Complete Time: 21:51 ar5 05/19 21:29 Order name: Urine --Ancillary (enter results); Complete Time: 21:51 [facility] 05/19 21:33 Order name: CT Abd/Pelvis - IV Contrast Only kb 05/19 20:28 Order name: Urine Dipstick-Ancillary (obtain specimen); Complete Time: 21:28 kb 05/19 20:28 Order name: IV Start; Complete Time: 20:41 kb Administered Medications: 21:18 Drug: TORadol - Ketorolac 15 mg Route: IVP; Site: right antecubital; cc3 22:00 Follow up: Response: No adverse reaction; Pain is decreased cc3 Disposition: 05/20 21:21 Co-signature as Attending Physician, Jonathan Driscoll MD. Disposition: 05/19/19 22:49 Discharged to Home. Impression: Lower abdominal pain, unspecified. - Condition is Stable. - Discharge Instructions: Abdominal Pain, Adult, Doer-cu-Cohd. - Prescriptions for Diclofenac Sodium 75 mg Oral Tablet, Delayed Release (E.C.) - take 1 tablet by ORAL route 2 times per day As needed; 30 tablet. - Medication Reconciliation Form, Thank You Letter, Antibiotic Education, Prescription Opioid Use form. - Follow up: Emergency Department; When: As needed; Reason: Worsening of condition. Follow up: Private Physician; When: 2 - 3 days; Reason: Recheck today's complaints, Continuance of care, Re-evaluation by your physician. Signatures: Dispatcher [employer] EDArchana Douglas, NEAL REYEZP-April Hua RN RN ak1 Jonathan Driscoll MD MD gs Cordel, Charlene cc3 Corrections: (The following items were deleted from the chart) 05/19 23:20 22:49 05/19/2019 22:49 Discharged to Home. Impression: Lower abdominal pain, cc3 unspecified. Condition is Stable. Forms are Medication Reconciliation Form, Thank You Letter, Antibiotic Education, Prescription Opioid Use. Follow up: Emergency Department; When: As needed; Reason: Worsening of condition. Follow up: Private Physician; When: 2 - 3 days; Reason: Recheck today's complaints, Continuance of care, Re-evaluation by your physician. kb
--- NOTE | 2019-05-19 22:50 | ER ---
Nurse's Notes [facility] Name: Tawnya Vogel Age: 33 yrs Sex: Female : 1985 Arrival Date: 05/19/2019 Time: 19:37 Bed 20 Private MD: Diagnosis: Lower abdominal pain, unspecified Presentation: 05/19 19:54 Presenting complaint: Patient states: left lower abd pain that radiates to left flank ak1 since 1400 today. pt denies urinary s/s. Transition of care: patient was not received from another setting of care. Onset of symptoms was May 19, 2019. Risk Assessment: Do you want to hurt yourself or someone else? Patient reports no desire to harm self or others. Initial Sepsis Screen: Does the patient meet any 2 criteria? No. Patient's initial sepsis screen is negative. Does the patient have a suspected source of infection? No. Patient's initial sepsis screen is negative. Care prior to arrival: None. 19:54 Method Of Arrival: Ambulatory ak1 19:54 Acuity: ANTONIO 3 ak1 Triage Assessment: 19:56 General: Appears in no apparent distress. Behavior is calm, cooperative. ak1 19:57 Pain: Complains of pain in left lower quadrant. 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 - Social history:: Smoking status: Patient/guardian denies using tobacco. - Ebola Screening: : No symptoms or risks identified at this time. Screenin:57 Abuse screen: Denies threats or abuse. Denies injuries from another. Nutritional ak1 screening: No deficits noted. Tuberculosis screening: No symptoms or risk factors identified. Fall Risk None identified. Assessment: 20:01 General: Appears in no apparent distress. uncomfortable, Behavior is calm, cooperative, cc3 appropriate for age. Pain: Complains of pain in right lower quadrant and abdomen and left lower quadrant. Neuro: Level of Consciousness is awake, alert, obeys commands, Oriented to person, place, time, situation, Appropriate for age. Cardiovascular: Denies chest pain, Capillary refill < 3 seconds Patient's skin is warm and dry. Respiratory: Airway is patent Respiratory effort is even, unlabored, Respiratory pattern is regular, symmetrical. GI: Abdomen is round non-distended, Bowel sounds present X 4 quads. Abd is soft and non tender X 4 quads. : No signs and/or symptoms were reported regarding the genitourinary system. EENT: No signs and/or symptoms were reported regarding the EENT system. Derm: Skin is intact, is healthy with good turgor, Skin is pink, warm \T\ dry. normal. Musculoskeletal: Circulation, motion, and sensation intact. Range of motion: intact in all extremities. 21:12 Reassessment: Patient appears in no apparent distress at this time. Patient and/or cc3 family updated on plan of care and expected duration. Pain level reassessed. Patient is alert, oriented x 3, equal unlabored respirations, skin warm/dry/pink. 22:00 Reassessment: Patient appears in no apparent distress at this time. Patient and/or cc3 family updated on plan of care and expected duration. Pain level reassessed. Patient is alert, oriented x 3, equal unlabored respirations, skin warm/dry/pink. Patient came back from CT scan department, awaiting result. Patient denies pain at this time. Patient states feeling better. 23:15 Reassessment: Patient appears in no apparent distress at this time. Patient and/or cc3 family updated on plan of care and expected duration. Pain level reassessed. Patient is alert, oriented x 3, equal unlabored respirations, skin warm/dry/pink. MORENO Davis discharged the patient home with prescription given. IV cannula removed and patient left ER vitally stable and ambulatory. No valuables left in the patient's room. Patient denies pain at this time. Patient states feeling better. Patient states symptoms have improved. Vital Signs: 19:56 BP 156 / 83; Pulse 99; Resp 18; Temp 98.2(O); Pulse Ox 100% on R/A; Weight 95.25 kg ak1 (R); Height 4 ft. 11 in. (149.86 cm) (R); Pain 8/10; 20:15 BP 130 / 84; Pulse 81; Resp 19 S; Pulse Ox 99% on R/A; cc3 21:30 BP 130 / 71; Pulse 80; Resp 17 S; Pulse Ox 100% on R/A; cc3 22:05 BP 137 / 86; Pulse 86; Resp 18 S; Pulse Ox 100% on R/A; cc3 23:00 BP 129 / 87; Pulse 85; Resp 16 S; Pulse Ox 100% on R/A; cc3 19:56 Body Mass Index 42.41 (95.25 kg, 149.86 cm) ak1 ED Course: 19:37 Patient arrived in ED. rg4 19:41 Archana Davis FNP-C is [facility]. kb 19:41 Jonathan Driscoll MD is Attending Physician. kb 19:55 Triage completed. ak1 19:56 Arm band placed on Patient placed in an exam room, on a stretcher, on pulse oximetry, ak1 Patient notified of wait time. 19:57 Patient has correct armband on for positive identification. Bed in low position. Call ak1 light in reach. Side rails up X 1. Adult w/ patient. Pulse ox on. NIBP on. 20:01 Silvia Mojica is Primary Nurse. cc3 20:35 Inserted saline lock: 20 gauge in right antecubital area, using aseptic technique. cc3 Blood collected. 22:09 CT completed. Patient tolerated procedure well. Patient moved to CT via wheelchair. Patient moved back from CT. 22:15 CT Abd/Pelvis - IV Contrast Only In Process Unspecified. EDMS 23:15 No provider procedures requiring assistance completed. IV discontinued, intact, cc3 bleeding controlled, No redness/swelling at site. Pressure dressing applied. Administered Medications: 21:18 Drug: TORadol - Ketorolac 15 mg Route: IVP; Site: right antecubital; cc3 22:00 Follow up: Response: No adverse reaction; Pain is decreased cc3 Outcome: 22:49 Discharge ordered by . kb 23:15 Discharged to home ambulatory. cc3 23:15 Condition: stable 23:15 Discharge instructions given to patient, Instructed on discharge instructions, follow up and referral plans. medication usage, Demonstrated understanding of instructions, follow-up care, medications, Prescriptions given X 1. 23:20 Patient left the ED. cc3 Signatures: Dispatcher [employer] EDMS Archana Davis FNP-C ROUTEMAN-Ckb David Rausch Amber, RN RN ak1 Marjan Rhodes rg4 Silvia Mojica cc3
[2019-05-20 01:26] VITALS: TEMP 99.4
[2019-05-20 01:28] VITALS: BP 123/81; O2SAT 99
--- NOTE | 2019-05-20 11:10 | RAD REPORT ---
EXAM DESCRIPTION: CT Abdomen and Pelvis With Intravenous Contrast CLINICAL HISTORY: The patient is 33 years old and is Female; ABD PAIN TECHNIQUE: Axial computed tomography images of the abdomen and pelvis with intravenous contrast. S agittal and coronal reformatted images were created and reviewed. This CT exam was performed using one or more of the following dose reduction techniques: automated exposure control, adjustment of t he mA and/or kV according to patient size, and/or use of iterative reconstruction technique. COMPARISON: None. FINDINGS: LUNG BASES: Unremarkable. No mass. No consolidation. ABDOMEN: LIVER: Unremarkable. No mass. GALLBLADDER AND BILE DUCTS: Contracted gallbladder. No calcified stones. No ductal dilation. PANCREAS: Unremarkable. No mass. No ductal dilation. SPLEEN: Unremarkable. No splenomegaly. ADRENALS: Unremarkable. No mass. KIDNEYS AND URETERS: Unremarkable. No solid mass. No hydronephrosis. STOMACH AND BOWEL: Unremarkable. No obstruction. No mucosal thickening. PELVIS: APPENDIX: The appendix is seen and is within normal limits. BLADDER: The bladder is decompressed. REPRODUCTIVE: Enlargement of the uterus with heterogenous mass measuring 9.3 x 7.9 cm suggestive o f fibroid. ABDOMEN and PELVIS: INTRAPERITONEAL SPACE: Unremarkable. No free air. No significant fluid collection. BONES/JOINTS: No acute fracture. No dislocation. SOFT TISSUES: Unremarkable. VASCULATURE: Unremarkable. No abdominal aortic aneurysm. LYMPH NODES: Unremarkable. No enlarged lymph nodes. IMPRESSION: 1. No acute abdominal or pelvic abnormality. 2. Enlarged uterus with suggestion of submucosal fibroid measuring up to 9.3 cm. Electronically signed by: Chace Hoang DO 05/19/2019 10:20 PM CDT Due to temporary technical issues with the PACS/Fluency reporting system, reports are being signed by the in house radiologist as a courtesy to ensure prompt reporting. The interpreting radiologist is f renettaly responsible for the content of the report.
== END 2019-05-19 23:20 | disposition home or self-care (01) ==
LOC: ER 19:33
DX: R10.30 Lower abdominal pain, unspecified (principal); Z88.0 Allergy status to penicillin; Z88.5 Allergy status to narcotic agent
CPT/HCPCS: 36415; 74177; 80048; 81003; 81025; 85025; 96374; 99284; Q9967

== ENCOUNTER 2019-06-17 09:12 | Emergency (ER) | payer OTHER ==
[2019-06-17] MEDS ORDERED: METHYLPREDNISOLONE 125 MG INJ ONE (09:31)
[2019-06-17] MEDS ORDERED: DIPHENHYDRAMINE 50 MG/ML VIAL ONE (09:32)
--- NOTE | 2019-06-17 10:36 | RAD REPORT ---
EXAM DESCRIPTION: US - Abdomen Exam Limited - 06/17/2019 10:03 am CLINICAL HISTORY: Incision dehiscence Pelvic pain COMPARISON: ABDOMINAL EXAM COMPLETE dated 06/13/2013 FINDINGS: Small opening in the skin is seen along the left aspect of the patient's incisio n. This measures about 10 x 3 mm. There is no evidence of a deeper channel present. No abscess, hemat florina or seroma seen.
--- NOTE | 2019-06-17 11:20 | EDPHYS ---
Physician Documentation [facility] Name: Tawnya Vogel Age: 34 yrs Sex: Female : 1985 Arrival Date: 06/17/2019 Time: 09:14 Bed 6 Private MD: ED Physician Rad Hayes HPI: 06/17 11:49 This 34 yrs old Female presents to ER via Ambulatory with complaints of Eye kdr Swelling, Incision Problem. 11:49 The patient is experiencing matting or discharge, pain, redness, Swelling of both upper kdr and lower lids, caused by Eye make-up. Onset: The symptoms/episode began/occurred just prior to arrival, this morning. Duration: the symptoms are continuous. Aggravated by nothing. Alleviated by nothing. Associated signs and symptoms: Pertinent positives:. Patient does not utilize any form of vision correction. Severity of symptoms: At their worst the symptoms were mild in the emergency department the symptoms are unchanged. The patient has not experienced similar symptoms in the past. The patient has not recently seen a physician. 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 - Ebola Screening: : No symptoms or risks identified at this time. - Social history:: Smoking status: unknown. ROS: 11:49 Constitutional: Negative for fever, chills, and weight loss, ENT: Negative for injury, kdr pain, and discharge, Neck: Negative for injury, pain, and swelling, Cardiovascular: Negative for chest pain, palpitations, and edema, Respiratory: Negative for shortness of breath, cough, wheezing, and pleuritic chest pain. 11:49 Eyes: Positive for discharge, itching, redness, swelling, tearing, Negative for blurry vision, itching, matting, vision loss, visual disturbance. Exam: 11:49 Constitutional: This is a well developed, well nourished patient who is awake, alert, kdr and in no acute distress. Head/Face: Normocephalic, atraumatic. ENT: Nares patent. No nasal discharge, no septal abnormalities noted. Tympanic membranes are normal and external auditory canals are clear. Oropharynx with no redness, swelling, or masses, exudates, or evidence of obstruction, uvula midline. Mucous membranes moist. Neck: Trachea midline, no thyromegaly or masses palpated, and no cervical lymphadenopathy. Supple, full range of motion without nuchal rigidity, or vertebral point tenderness. No Meningismus. 11:49 Eyes: Periorbital structures: no acute changes, erythema, that is mild, bilaterally, swelling, that is moderate, bilaterally, Pupils: equal, round, and reactive to light and accomodation, Extraocular movements: intact throughout, Conjunctiva: injected, bilaterally, Corneas: are normal, Sclera: no appreciated abnormality, Lids and lashes: appear normal, bilaterally, Upper and lower lids are swollen - lower > right. Vital Signs: 09:23 BP 130 / 98; Pulse 72; Resp 16; Temp 98.0(O); Pulse Ox 100% on R/A; Weight 95.25 kg; iw Height 4 ft. 11 in. (149.86 cm); Pain 8/10; 10:46 BP 123 / 66; Pulse 78; Resp 16; Pulse Ox 100% ; jl7 11:45 BP 117 / 58; Pulse 73; Resp 16 S; Pulse Ox 98% on R/A; jl7 09:23 Body Mass Index 42.41 (95.25 kg, 149.86 cm) iw MDM: 11:19 Patient medically screened. kdr 11:49 Data reviewed: vital signs, nurses notes. Counseling: I had a detailed discussion with kdr the patient and/or guardian regarding: the historical points, exam findings, and any diagnostic results supporting the discharge/admit diagnosis, the need for outpatient follow up. 06/17 09:34 Order name: US Abdomen Limited kdr 06/17 09:42 Order name: IV Saline Lock; Complete Time: 09:42 jl7 Administered Medications: 09:35 Drug: Benadryl 50 mg Route: IVP; Site: right antecubital; jl7 10:00 Follow up: Response: No adverse reaction; Other; Eye swelling and tearing decreased jl7 09:37 Drug: SOLU-Medrol 125 mg Route: IVP; Site: right antecubital; jl7 10:00 Follow up: Response: No adverse reaction; Other; Eye swelling decreased jl7 Disposition: 06/17/19 11:19 Discharged to Home. Impression: Acute Allergic Reaction: Eyelid makeup . - Condition is Stable. - Discharge Instructions: Allergies, Bwro-kh-Drqu. - Prescriptions for Benadryl 25 mg Oral Capsule - take 1 capsule by ORAL route every 6 hours As needed; 30 tablet. Pepcid 20 mg Oral Tablet - take 1 tablet by ORAL route every 12 hours for 5 days; 10 tablet. Medrol (Yanick) 4 mg Oral Tablets, Dose Pack - take 1 tablet by ORAL route as directed - follow package instructions; 1 packet. - Medication Reconciliation Form, Thank You Letter form. - Follow up: Private Physician; When: 2 - 3 days; Reason: If symptoms return, Further diagnostic work-up, Recheck today's complaints, Continuance of care, Re-evaluation by your physician. - Problem is new. - Symptoms have improved. - Notes: Do not use the make-up you had used yesterday on your eye3s Signatures: Dispatcher [employer] EDMS Rad Hayes MD MD kdr Isabela Charles RN RN Nathan Chowdary RN RN jl7 Corrections: (The following items were deleted from the chart) 12:05 11:19 06/17/2019 11:19 Discharged to Home. Impression: Acute Allergic Reaction: Eyelid jl7 makeup . Condition is Stable. Forms are Medication Reconciliation Form, Thank You Letter, Antibiotic Education, Prescription Opioid Use. Follow up: Private Physician; When: 2 - 3 days; Reason: If symptoms return, Further diagnostic work-up, Recheck today's complaints, Continuance of care, Re-evaluation by your physician. Problem is new. Symptoms have improved. kdr
--- NOTE | 2019-06-17 11:20 | ER ---
Nurse's Notes [facility] Name: Tawnya Vogel Age: 34 yrs Sex: Female : 1985 Arrival Date: 06/17/2019 Time: 09:14 Bed 6 Private MD: Diagnosis: Acute Allergic Reaction: Eyelid makeup Presentation: 06/17 09:15 Presenting complaint: Patient states: woke up with mirella eye swelling, redness, burning, iw left eye was matted closed, also states that last night her incision opened up on left side, noticed a small amount of drainage. 09:15 Acuity: ANTONIO 3 iw 09:19 Risk Assessment: Do you want to hurt yourself or someone else?. ph 09:19 Transition of care: patient was not received from another setting of care. Onset of ph symptoms was June 17, 2019. Risk Assessment: Do you want to hurt yourself or someone else? Patient reports no desire to harm self or others. Initial Sepsis Screen: Does the patient meet any 2 criteria? No. Patient's initial sepsis screen is negative. Does the patient have a suspected source of infection? No. Patient's initial sepsis screen is negative. Care prior to arrival: None. 09:19 Method Of Arrival: Ambulatory ph [employer] ARCHITECT: 09:33 LMP 06/17/2019 iw Historical: - Allergies: 09:19 Hydrocodone-Acetaminophen; ph 09:19 PENICILLINS; ph - PMHx: 09:19 Ovarian cyst; ph - PSHx: 09:19 OVARIAN CYST REMOVAL; ; ph - Immunization history:: Adult Immunizations unknown. - Ebola Screening: : No symptoms or risks identified at this time. - Social history:: Smoking status: unknown. Screenin:19 Abuse screen: Denies threats or abuse. Denies injuries from another. Nutritional ph screening: No deficits noted. Tuberculosis screening: No symptoms or risk factors identified. Fall Risk None identified. Assessment: 09:42 General: Appears in no apparent distress. uncomfortable, Behavior is calm, cooperative, jl7 appropriate for age. Pain: Complains of pain in right eye and left eye Pain does not radiate. Pain currently is 8 out of 10 on a pain scale. Is continuous. Neuro: Level of Consciousness is awake, alert, obeys commands, Oriented to person, place, time, situation. Cardiovascular: Patient's skin is warm and dry. Respiratory: Airway is patent Respiratory effort is even, unlabored, Respiratory pattern is regular, symmetrical. GI: No signs and/or symptoms were reported involving the gastrointestinal system. : No signs and/or symptoms were reported regarding the genitourinary system. EENT: Eyes are tearing on right eye and left eye Sclera/Cornea are reddened in right eye and left eye Lid(s) Swelling noted to bilateral eyes. Derm: Skin is pink, warm \T\ dry. Wound noted Other: dehiscence noted to left section of incision, approximately 1/2 inch. Musculoskeletal: No signs and/or symptoms reported regarding the musculoskeletal system. 10:26 Reassessment: Patient appears in no apparent distress at this time. No changes from jl7 previously documented assessment. Patient and/or family updated on plan of care and expected duration. Pain level reassessed. Patient is alert, oriented x 3, equal unlabored respirations, skin warm/dry/pink. Patient states symptoms have improved. Vital Signs: 09:23 BP 130 / 98; Pulse 72; Resp 16; Temp 98.0(O); Pulse Ox 100% on R/A; Weight 95.25 kg; iw Height 4 ft. 11 in. (149.86 cm); Pain 8/10; 10:46 BP 123 / 66; Pulse 78; Resp 16; Pulse Ox 100% ; jl7 11:45 BP 117 / 58; Pulse 73; Resp 16 S; Pulse Ox 98% on R/A; jl7 09:23 Body Mass Index 42.41 (95.25 kg, 149.86 cm) ED Course: 09:14 Patient arrived in ED. as 09:17 Rad Hayes MD is Attending Physician. kdr 09:20 Arm band placed on Patient placed in an exam room. ph 09:20 Patient has correct armband on for positive identification. Bed in low position. Call ph light in reach. Side rails up X 1. Pulse ox on. NIBP on. Door closed. Noise minimized. Warm blanket given. Head of bed elevated. 09:27 Nathan Chowdary RN is Primary Nurse. jl7 09:33 Triage completed. iw 09:42 Inserted saline lock: 22 gauge in right antecubital area, using aseptic technique. jl7 10:06 US Abdomen Limited In Process Unspecified. EDMS 11:45 No provider procedures requiring assistance completed. IV discontinued, intact, jl7 bleeding controlled, No redness/swelling at site. Pressure dressing applied. Administered Medications: 09:35 Drug: Benadryl 50 mg Route: IVP; Site: right antecubital; jl7 10:00 Follow up: Response: No adverse reaction; Other; Eye swelling and tearing decreased jl7 09:37 Drug: SOLU-Medrol 125 mg Route: IVP; Site: right antecubital; jl7 10:00 Follow up: Response: No adverse reaction; Other; Eye swelling decreased jl7 Outcome: 11:19 Discharge ordered by MD. kdr 11:45 Discharged to home ambulatory, with family. jl7 11:45 Condition: stable jl7 11:45 Discharge instructions given to patient, family, Instructed on discharge instructions, follow up and referral plans. medication usage, Demonstrated understanding of instructions, follow-up care, medications, Prescriptions given X 3. 11:45 Patient left the ED. jl7 Signatures: Dispatcher [employer] EDMS Rad Hayes MD MD kdr Juliette Rios as Estephania Pimentel, JOSEPHINE RN iw Isabela Charles RN RN ph Nathan Chowdary RN RN jl7 Corrections: (The following items were deleted from the chart) 09:33 09:15 Acuity: ANTONIO 4 iw iw 09:34 09:23 BP 130 / 98; Pulse 72bpm; Resp 16bpm; Pulse Ox 100% RA; ph iw 09:35 09:33 Presenting complaint: Patient states: Woke up this morning w/ mirella eye swelling ph and irritation, also reports that she noticed that part of her incision had opened during the night, reports drainage from site. ph 09:35 09:33 Acuity: ANTONIO 3 ph ph 12:04 12:03 Discharged to home ambulatory, with family, jl7 jl7 12:04 12:03 Condition: stable jl7 jl7 12:04 12:03 Discharge instructions given to patient, family, Instructed on discharge jl7 instructions, follow up and referral plans. medication usage, Demonstrated understanding of instructions, follow-up care, medications, Prescriptions given X 3, jl7 12:05 12:05 Patient left the ED. jl7 jl7
[2019-06-17 12:29] VITALS: TEMP 98
[2019-06-17 12:31] VITALS: BP 117/58; O2SAT 98
== END 2019-06-17 12:05 | disposition home or self-care (01) ==
LOC: ER 09:12
DX: H57.13 Ocular pain, bilateral (principal); Z88.0 Allergy status to penicillin; Z88.5 Allergy status to narcotic agent; Z91.09 Other allergy status, other than to drugs and biological substances
CPT/HCPCS: 76705; 96375; 96374; 99284; J2930

== ENCOUNTER 2019-09-15 14:38 | Emergency (ER) | payer OTHER ==
[2019-09-15 15:29] LABS: Absolute Lymphocytes (CBC) 2.7 K/uL (0.7-4.9); Basophils % 0.6 % (0-1.3); Hematocrit 37.9 % (36.0-45.0); MPV 9.4 fL (7.6-11.3)
[2019-09-15 15:48] LABS: ALT/SGPT 24 U/L (12-78); AST/SGOT 15 U/L (15-37); Albumin 3.8 g/dL (3.4-5.0); Alkaline Phosphatase 58 U/L (45-117); BUN Blood Urea Nitrogen 9 mg/dL (7-18); Bicarbonate 28 mmol/L (21-32); Bilirubin Direct 0.1 mg/dL (0-0.2); Bilirubin Total 0.4 mg/dL (0.2-1.0); Glucose Level 88 mg/dL (74-106); Lipase 189 U/L (73-393); Potassium 3.9 mmol/L (3.5-5.1); Sodium Level 141 mmol/L (136-145)
[2019-09-15] MEDS ORDERED: NA CHLORIDE 0.9% 1,000 ML ONE (16:03)
--- NOTE | 2019-09-15 16:55 | RAD REPORT ---
EXAM DESCRIPTION: CT - Abdomen Pelvis W Contrast - 09/15/2019 4:39 pm CLINICAL HISTORY: Abdominal pain COMPARISON: May 2019 TECHNIQUE: Computed axial tomography of the abdomen pelvis was obtained. 100 cc Isovue-300 was admin istered intravenously. Oral contrast was not requested which limits evaluation of bowel. All CT scans are performed using dose optimization technique as appropriate and may include automated exposure control or mA/KV adjustment according to patient size. FINDINGS: The liver, spleen, pancreas, adrenal and kidneys appear unremarkable. There is no evidence of diverticulitis. Normal appendix 9 centimeter uterine mass displaces the endometrium towards the left. It is either stable or slightly decreased size from the prior exam Small umbilical hernia IMPRESSION: 9 centimeter uterine mass. This may represent a fibroid. Nonemergent pelvic ultrasound r ecommended
[2019-09-15 17:15] LABS: Urine Bacteria LOADED /HPF (<20); Urine Culture Reflex Order NOT NEEDED
[2019-09-15 17:15] LABS: Urine Blood NEGATIVE (NEG); Urine Glucose NEGATIVE (NEG); Urine Protein 2+ (NEG); Urine Specific Gravity 1.025 (1.005-1.030)
--- NOTE | 2019-09-15 17:43 | EDPHYS ---
Physician Documentation [facility] Name: Tawnya Vogel Age: 34 yrs Sex: Female : 1985 Arrival Date: 09/15/2019 Time: 14:41 Bed 27 Private MD: Unknown, Unknown ED Physician Rad Hayes HPI: 09/15 15:06 This 34 yrs old Female presents to ER via Ambulatory with complaints of m Abdominal Pain. 15:06 The patient presents with abdominal pain in the lower abdomen, right lower quadrant, in jmm the left lower quadrant. Onset: The symptoms/episode began/occurred gradually, 1 day(s) ago. The symptoms do not radiate. Associated signs and symptoms: Pertinent positives: nausea. The symptoms are described as achy. This is a 34 year old female with a history of ovarian cysts that presents to the ED with complaints of lower abdominal pain, nausea beginning 1 day ago. Patient denies fever. Patient does have a history of a large intrauterine fibroid. Denies vaginal discharge. . Historical: - Allergies: 14:54 Hydrocodone-Acetaminophen; sv 14:54 PENICILLINS; sv - PMHx: 14:54 Ovarian cyst; sv - PSHx: 14:54 OVARIAN CYST REMOVAL; ; sv - Immunization history:: Adult Immunizations up to date. - Social history:: Smoking status: unknown. - Ebola Screening: : No symptoms or risks identified at this time. ROS: 15:06 Constitutional: Negative for fever, chills, and weight loss, Cardiovascular: Negative [facility] for chest pain, palpitations, and edema, Respiratory: Negative for shortness of breath, cough, wheezing, and pleuritic chest pain. 15:06 Abdomen/GI: Positive for abdominal pain. 15:06 : Negative for burning with urination, difficulty urinating, vaginal bleeding. 15:06 All other systems are negative. Exam: 15:06 Constitutional: This is a well developed, well nourished patient who is awake, alert, jmm and in no acute distress. Head/Face: atraumatic. Eyes: EOMI, no conjunctival erythema appreciated ENT: Moist Mucus Membranes Neck: Trachea midline, Supple Chest/axilla: Normal chest wall appearance and motion. Cardiovascular: Regular rate and rhythm. No edema appreciated 15:06 Respiratory: Normal respirations, no respiratory distress appreciated 15:06 Back: Normal ROM Skin: General appearance color normal MS/ Extremity: Moves all extremities, no obvious deformities appreciated, no edema noted to the lower extremities Neuro: Awake and alert, normal gait Psych: Behavior is normal, Mood is normal, Patient is cooperative and pleasant 15:06 Abdomen/GI: Inspection: abdomen appears normal, Bowel sounds: normal, Palpation: soft, mild abdominal tenderness, in the suprapubic area. Vital Signs: 14:54 BP 126 / 90; Pulse 85; Resp 20; Temp 97.5; Pulse Ox 98% ; Weight 95.25 kg; Height 4 ft. sv 11 in. (149.86 cm); Pain 8/10; 16:00 BP 107 / 62; Pulse 78; Resp 16; Pulse Ox 99% on R/A; tr5 17:00 BP 123 / 87; Pulse 80; Resp 16; Pulse Ox 100% on R/A; tr5 14:54 Body Mass Index 42.41 (95.25 kg, 149.86 cm) sv MDM: 15:20 Patient medically screened. [facility] 17:41 Data reviewed: vital signs, nurses notes. Counseling: I had a detailed discussion with jenifer the patient and/or guardian regarding: the historical points, exam findings, and any diagnostic results supporting the discharge/admit diagnosis, lab results, radiology results, the need for outpatient follow up, to return to the emergency department if symptoms worsen or persist or if there are any questions or concerns that arise at home. ED course: Patient is alert and non toxic in appearance in the ED. I discussed with the patient the need to follow up with boil off machine operator cloth for reevaluation. Patient was otherwise given strict return precautions. Patient understood and agrees with the plan of care. . 09/15 15:06 Order name: Basic Metabolic Panel [facility] 09/15 15:06 Order name: CBC with Diff [facility] 09/15 15:06 Order name: Creatinine for Radiology [facility] 09/15 15:06 Order name: Hepatic Function [facility] 09/15 15: Order name: Lipase [facility] 09/15 16:19 Order name: Urine Culture [facility] 09/15 15:06 Order name: IV Saline Lock; Complete Time: 15:17 [facility] 09/15 15:06 Order name: Labs collected and sent; Complete Time: 15:17 [facility] 09/15 15:06 Order name: Urine Dipstick-Ancillary (obtain specimen); Complete Time: 16:13 [facility] 09/15 16:14 Order name: CT Abd/Pelvis - IV Contrast Only; Complete Time: 17:04 [facility] 09/15 16:19 Order name: Urine Microscopic Only; Complete Time: 17:25 tr5 09/15 16:25 Order name: Urine Dipstick--Ancillary (enter results); Complete Time: 17:25 09/15 16:25 Order name: Urine --Ancillary (enter results); Complete Time: 17:25 09/15 15:06 Order name: Urine Test (obtain specimen); Complete Time: 16:13 [facility] Administered Medications: 16:13 Drug: NS 0.9% 1000 ml Route: IV; Rate: 1 bolus; Site: left antecubital; tr5 Disposition: 09/16 07:16 Co-signature as Attending Physician, Rad Hayes MD I agree with the assessment and kdr plan of care. Disposition: 09/15/19 17:42 Discharged to Home. Impression: Urinary tract infection, site not specified, Unspecified abdominal pain. - Condition is Stable. - Discharge Instructions: Abdominal Pain, Adult, Uterine Fibroids, Urinary Tract Infection, Adult. - Prescriptions for Ibuprofen 800 mg Oral Tablet - take 1 tablet by ORAL route every 8 hours As needed take with food; 30 tablet. Macrobid 100 mg Oral Capsule - take 1 capsule by ORAL route every 12 hours for 7 days; 14 capsule. - Medication Reconciliation Form, Thank You Letter, Antibiotic Education, Prescription Opioid Use form. - Follow up: May Chappell MD; When: 2 - 3 days; Reason: Recheck today's complaints, Continuance of care, Re-evaluation by your physician. Signatures: Dispatcher [employer] Iram Sim RN RN sv Rittger, Kevin, MD MD kdr Mickail, Joel, PA PA [facility] Tushar Gunter RN RN tr5 Corrections: (The following items were deleted from the chart) 09/15 17:53 17:42 09/15/2019 17:42 Discharged to Home. Impression: Urinary tract infection, site tr5 not specified; Unspecified abdominal pain. Condition is Stable. Forms are Medication Reconciliation Form, Thank You Letter, Antibiotic Education, Prescription Opioid Use. Follow up: May Chappell; When: 2 - 3 days; Reason: Recheck today's complaints, Continuance of care, Re-evaluation by your physician. jenifer
--- NOTE | 2019-09-15 17:43 | ER ---
Nurse's Notes [facility] Name: Tawnya Vogel Age: 34 yrs Sex: Female : 1985 Arrival Date: 09/15/2019 Time: 14:41 Bed 27 Private MD: Unknown, Unknown Diagnosis: Urinary tract infection, site not specified;Unspecified abdominal pain Presentation: 09/15 14:48 Presenting complaint: Patient states: RUQ/RLQ pain,n/v/d x1 day. Transition of care: sv patient was not received from another setting of care. Onset of symptoms was September 14, 2019. Risk Assessment: Do you want to hurt yourself or someone else? Patient reports no desire to harm self or others. Care prior to arrival: None. 14:48 Method Of Arrival: Ambulatory sv 14:48 Acuity: ANTONIO 3 sv 14:48 Initial Sepsis Screen: Does the patient meet any 2 criteria? No. Patient's initial tr5 sepsis screen is negative. Does the patient have a suspected source of infection? No. Patient's initial sepsis screen is negative. Historical: - Allergies: 14:54 Hydrocodone-Acetaminophen; sv 14:54 PENICILLINS; sv - PMHx: 14:54 Ovarian cyst; sv - PSHx: 14:54 OVARIAN CYST REMOVAL; ; sv - Immunization history:: Adult Immunizations up to date. - Social history:: Smoking status: unknown. - Ebola Screening: : No symptoms or risks identified at this time. Screenin:00 Abuse screen: Denies threats or abuse. Nutritional screening: No deficits noted. tr5 Tuberculosis screening: No symptoms or risk factors identified. Fall Risk None identified. Assessment: 15:00 General: Appears uncomfortable, Behavior is calm, cooperative, appropriate for age. tr5 Pain: Complains of pain in right upper quadrant and right lower quadrant. Neuro: Level of Consciousness is awake, alert, obeys commands, Oriented to person, place, time, [place] are equal bilaterally Moves all extremities. Reports dizziness. Cardiovascular: Heart tones present Capillary refill < 3 seconds Pulses are all present. Respiratory: Airway is patent Respiratory effort is even, unlabored, Respiratory pattern is regular, symmetrical. GI: Bowel sounds present X 4 quads. Abd is soft Reports upper abdominal pain, diarrhea, nausea, vomiting. : No signs and/or symptoms were reported regarding the genitourinary system. EENT: No signs and/or symptoms were reported regarding the EENT system. Derm: No signs and/or symptoms reported regarding the dermatologic system. Musculoskeletal: No signs and/or symptoms reported regarding the musculoskeletal system. 16:00 Reassessment: Patient appears in no apparent distress at this time. Patient and/or tr5 family updated on plan of care and expected duration. Pain level reassessed. Patient is alert, oriented x 3, equal unlabored respirations, skin warm/dry/pink. 17:00 Reassessment: Patient appears in no apparent distress at this time. No changes from tr5 previously documented assessment. Patient and/or family updated on plan of care and expected duration. Pain level reassessed. Vital Signs: 14:54 BP 126 / 90; Pulse 85; Resp 20; Temp 97.5; Pulse Ox 98% ; Weight 95.25 kg; Height 4 ft. sv 11 in. (149.86 cm); Pain 8/10; 16:00 BP 107 / 62; Pulse 78; Resp 16; Pulse Ox 99% on R/A; tr5 17:00 BP 123 / 87; Pulse 80; Resp 16; Pulse Ox 100% on R/A; tr5 14:54 Body Mass Index 42.41 (95.25 kg, 149.86 cm) sv ED Course: 14:41 Patient arrived in ED. ag5 14:42 Unknown, Unknown is Private Physician. ag5 14:48 Steve Zee PA is PHCP. m 14:48 Rad Hayes MD is Attending Physician. m 14:54 Triage completed. sv 14:55 Arm band placed on. sv 15:00 Bed in low position. Call light in reach. Side rails up X 1. tr5 15:06 Tushar Gunter, RN is Primary Nurse. tr5 15:15 Initial lab(s) drawn, by me, sent to lab. Inserted saline lock: 22 gauge in left tr5 antecubital area, using aseptic technique. 16:17 Urine collected: clean catch specimen, clear, raquel colored. Patient maintains SpO2 jp3 saturation greater than 95% on room air. 16:21 Urine Microscopic Only Sent. jp3 16:22 Urine Culture Sent. jp3 16:45 CT Abd/Pelvis - IV Contrast Only In Process Unspecified. EDMS 17:42 Kadiyala, May, MD is Referral Physician. [facility] 17:52 No provider procedures requiring assistance completed. IV discontinued. tr5 Administered Medications: 16:13 Drug: NS 0.9% 1000 ml Route: IV; Rate: 1 bolus; Site: left antecubital; tr5 Outcome: 17:42 Discharge ordered by . [facility] 17:53 Discharged to home ambulatory. tr5 17:53 Condition: stable 17:53 Discharge instructions given to patient, Instructed on discharge instructions, follow up and referral plans. medication usage, Demonstrated understanding of instructions, follow-up care, medications, Prescriptions given X 2. 17:53 Patient left the ED. tr5 Addendum: 09/18/2019 07:25 Addendum: Culture Results: Positive urine culture. No further action required. Bacteria e b sensitive to prescribed antibiotic. Signatures: Dispatcher [employer] EDIL Iram Ferro, RN RN Steve Sandoval PA PA [facility] Ruma Gr Jacob jp Iris Pate Tushar Hi RN RN tr5
[2019-09-15 18:45] VITALS: TEMP 97.5
[2019-09-15 18:48] VITALS: BP 123/87; O2SAT 100
--- OUTSIDE RECORDS SUMMARY | 2019-09-19 04:20 | XMS REPORT ---
:1985 [facility] Address [address] [place] [address] [address] [place] [address] Care Team Providers Name Role Phone Unavailable Unavailable Unavailable Problems This patient has no known problems. Allergies, Adverse Reactions, Alerts This patient has no known allergies or adverse reactions. Medications This patient has no known medications.
--- OUTSIDE RECORDS SUMMARY | 2019-09-19 04:20 | XMS REPORT | Summary of Care ---
:1985 Author Organization [facility] - Health Address [address] [place] [address] Care Team Providers Name Role Phone Valentino Gorman Primary Care Provider Encounter Details Date Type Department Care Team Description 07/20/2019 Orders Only [facility] Doctor Unassigned, No [address] [facility] [place] [address] [address] [place] [address] Allergies Active Allergy Reactions Severity Noted Date Comments Hydrocodone Rash 09/03/2015 Penicillins Anaphylaxis 09/03/2015 documented as of this encounter (statuses as of 07/20/2019) Medications Medication Sig Dispensed Refills Start Date End Date Status multivitamin Take 1 Tab by 90 Tab 3 09/03/2015 Active ( VITAMIN) mouth daily. tabletIndications: High risk , antepartum documented as of this encounter (statuses as of 07/20/2019) Active Problems Problem Noted Date Leukocytes in urine 09/04/2015 High risk , antepartum 09/03/2015 Hypothyroid in , antepartum, unspecified trimester 09/03/2015 Obesity affecting , antepartum, unspecified trimester 09/03/2015 documented as of this encounter (statuses as of 07/20/2019) Immunizations Name Administration Dates Next Due Influenza Virus Vaccine Quad IM 3+ YRS 09/03/2015 documented as of this encounter Social History Tobacco Use Types Packs/Day Years Used Date Never Smoker Smokeless Tobacco: Never Used Alcohol Use Drinks/Week oz/Week Comments No 0 Standard drinks or equivalent 0.0 Sex Assigned at Date Recorded Not on file Job Start Date Occupation Industry Not on file Not on file Not on file Travel History Travel Start Travel End No recent travel history available. documented as of this encounter Last Filed Vital Signs Not on filedocumented in this encounter Plan of Treatment Date Type Specialty Care Team Description 07/20/2019 Office Visit [facility] Valentino Gorman, [employer] [address] [place] [address] [phone] Health Maintenance Due Date Last Done Comments DTaP,Tdap,and Td Vaccines (1 - 2006 Tdap) PAP SMEAR 09/03/2018 09/03/2015 INFLUENZA VACCINE (#1) 2019 09/03/2015 PNEUMOCOCCAL 0-64 YEARS COMBINED Aged Out No longer eligible based on SERIES patient's age to complete this topic documented as of this encounter Procedures Procedure Name Priority Date/Time Associated Diagnosis Comments NOTICE OF PRIVACY Routine 07/20/2019 10:06 AM CDT PRACTICES documented in this encounter Results Not on filedocumented in this encounter Insurance Payer Benefit Plan Subscriber ID Effective Phone Address Type / Group Dates [facility] xxxxxxxxx 2019-Prese [phone] Medicaid WOMEN [address] [place] [address] documented as of this encounter
--- OUTSIDE RECORDS SUMMARY | 2019-09-19 04:21 | XMS REPORT | Summary of Care ---
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 Reason for Visit Reason Comments Well Woman Exam Encounter Details Date Type Department Care Team Description 07/20/2019 Office Visit [facility]- Valentino Gorman Well woman exam (Primary Dx); KELBY Keller Encounter for initial prescription of contraceptives, unspecified contraceptive; [address] [place] [address] Enlarged uterus; [place], [place] [address] Morbid obesity; [id number] [place] [address] BMI 40.0-44.9, adult; [phone] History of uterine fibroid Allergies Active Allergy Reactions Severity Noted Date Comments Hydrocodone Rash 09/03/2015 Penicillins Anaphylaxis 09/03/2015 documented as of this encounter (statuses as of 07/20/2019) Medications Medication Sig Dispensed Refills Start Date End Date Status multivitamin Take 1 Tab by 90 Tab 3 09/03/2015 Active ( VITAMIN) mouth daily. tabletIndications: High risk , antepartum Ibuprofen 200 mg capsule Take by mouth. 0 Active Hospital, Clinic, or Other Ordered Dose Route Frequency Start Date End Date Status Facility Administered Medication medroxyPROGESTERone 150 mg IM [id number] 07/20/2019 06/20/2020 Active (DEPO-PROVERA) injection 150 mgIndications: Encounter for initial prescription of contraceptives, unspecified contraceptive documented as of this encounter (statuses as of 07/20/2019) Active Problems Problem Noted Date Well woman exam 07/20/2019 Encounter for initial prescription of contraceptives, unspecified 07/20/2019 contraceptive Enlarged uterus 07/20/2019 Morbid obesity 07/20/2019 BMI 40.0-44.9, adult 07/20/2019 History of uterine fibroid 07/20/2019 Leukocytes in urine 09/04/2015 High risk , [...] of this encounter Last Filed Vital Signs Vital Sign Reading Time Taken Comments Blood Pressure 124/81 07/20/2019 10:29 AM CDT Pulse 86 07/20/2019 10:28 AM CDT Temperature 36.6 C (97.8 F) 07/20/2019 10:28 AM CDT Respiratory Rate 16 07/20/2019 10:28 AM CDT Oxygen Saturation - - Inhaled Oxygen Concentration - - Weight 96.7 kg (213 lb 4 oz) 07/20/2019 10:28 AM CDT Height 149.9 cm (4' 11") 07/20/2019 10:28 AM CDT Body Mass Index 43.07 07/20/2019 10:28 AM CDT documented in this encounter Patient Instructions Patient InstructionsAngie Vilchis LVN - 07/20/2019 10:15 AM CDT Clinical Breast Exam Many health organizations recommend a yearly clinical breast exam. This exam may be done by a ski molder, family healthcare provider, nurse practitioner, nurse director of design, or specially trained nurse. Yearly breast exams help tomake surethat breast conditions are found early. Your healthcare providers role A healthcare professional knows the tests and follow-up care needed if a problem is found. Your clinical exam is also a great time to ask questions about breast self-exams. You can find out if yourechecking your breasts in the best way. Or you may want to ask how , breast implants, or breast reduction surgery affect the way you should check your breasts. Diagnostic tests If a clinical exam reveals a breast change, you may have other tests to find out more. These tests may include: Mammography. A low-dose X-ray of your breast tissue. Ultrasound. An imaging test that uses sound waves to create images of your breast. Biopsy. A small amount of breast tissue is removed by needle or by a cut ( incision). The tissue is then checked under a microscope. Guidelines for having clinical breast exams The [place] [employer] recommends that starting at age 29, you should have a clinical breast exam every 1 to 3 years. After age 40, have a clinical breast exam each year. If youre at higher risk for breast cancer, you may need exams more often. Risk factors for breast cancer may include: Being over 50 or postmenopausal Having a family history of breast cancer Having the BRCA1 or BRCA2 gene mutation or certain other gene mutations Having more menstrual periods due to starting menstruation early(before age 12) or having a late menopause (after age 55) Having no pregnancies Having a first after age 30 Being obese Having a history of radiation treatment to your chest area Exposure to RUDDY during your mother's Not being active Drinking too much alcohol Having dense breast tissue Taking hormone therapy after menopause Other health organizations have different recommendations. Talk with your healthcare provider about what is best for you. Date Last Reviewed: 06/09/201719995138-2053 [employer]. [address] [place] [address]. All rights reserved. This information is not intended as a substitute for professional medical care. Always follow your healthcare professional's instructions. Breast Health: Breast Self-Awareness What is breast self-awareness? Breast self-awareness is knowing how your breasts normally look and feel. Your breasts change as yougo through different stages of your life. So its important to learn what is normal for your breasts. Breast self-awareness helps you notice any changes in your breasts right away. Report any changesto your healthcare provider. Why is breast self-awareness important? Many experts now say that women should focus on breast self-awareness instead of doing a breast self-examination (BSE). These experts include the [place] [employer], the U.S. Preventive Services Task Force, and the [place] [employer]. Some experts even advise notteaching women to do a BSE. Thats because research hasnt shown a clear benefit to doing BSEs. Breast self-awareness is different than a BSE. Breast self-awareness isnt about following a certain method and schedule. Its about knowing what's normal for your breasts. That way you can notice even small changes right away. If you see any changes, report them to your healthcare provider. Changes to look for Call your healthcare provider if you find any changes in your breasts that concern you. These changes may include: A lump Nipple discharge other than breastmilk, especially a bloody discharge Swelling A change in size or shape Skin irritation, such as redness, thickening, or dimpling of the skin Swollen lymph nodes in the armpit Nipple problems, such as pain or redness If you find a lump Contact your provider if you find lumpiness in one breast, feel something different in the tissue, or feel a definite lump. Sometimes lumpiness may be due to menstrual changes. But there may be reason for concern. Your provider may want to see you right away if you have: Nipple discharge that is bloody Skin changes on your breast, such as dimpling or puckering Its normal to be upset if you find a lump. But its important to contact your provider right away. Remember that most breast lumps are benign. This means they are not cancer. Date Last Reviewed: 06/09/201719991659-7888 [employer]. [address] [place] [address], [place] [address]. All rights reserved. This information is not intended as a substitute for professional medical care. Always follow your healthcare professional's instructions. Prevention Guidelines,Women Ages 18 to 39 Screening tests and vaccines are an important part of managing your health. A screening test is doneto find possible disorders or diseases in people who don' t have any symptoms. The goal is to find a disease early so lifestyle changes can be made and you can be watched more closely to reduce the riskof disease, or to detect it early enough to treat it most effectively. Screening tests are not considered diagnostic, but are used to determine if more testing is needed. Health counseling is essential, too. Below are guidelines for these, for women ages 18 to 39. Talk with your healthcare provider tomake sure youre up-to- date on what you need. Screening Who needs it How often Alcohol misuse All women in this age group At routine exams Blood pressure All women in this age group Yearly checkup if your blood pressure is normal Normal blood pressure is less than 120/80 mm Hg If your blood pressure reading is higher than normal, follow the advice of your healthcare provider Breast cancer All women in this age group should talk with their healthcare providers about the needfor clinical breast exams (CBE)1 Clinical breast exam every 3 years1 Cervical cancer Women ages 21 and older Women between ages 21 and 29 should have a Pap test every 3 years; women between ages 30 and 65 are advised to have a Pap test plus an HPV test every 5 years Chlamydia Sexually active women ages 25 and younger, and women at increased risk for infection (suchas having multiple sex partners) Every year if you're at risk or have symptoms Depression All women in this age group At routine exams Type 2 diabetes, prediabetes All women with no symptoms who are overweight or obese and have 1 or more other risk factors for diabetes At least every 3 years. Also, testing for diabetes during after the 24th week. Type 2 diabetes, prediabetes All women diagnosed with gestational diabetes Lifelong testing every 3 years Type 2 diabetes All women with prediabetes Every year Gonorrhea Sexually active women at increased risk for infection At routine exams Hepatitis C Anyone at increased risk At routine exams HIV All women should be tested at least once for HIV between the ages of 13 and 64 At routine exams.Those with risk factors for HIV should be tested at least annually. Obesity All women in this age group At routine exams Syphilis Women at increased risk for infection should talk with their healthcare provider At routineexams Tuberculosis Women at increased risk for infection should talk with their healthcare provider Ask your healthcare provider Vision All women in this age group At least 1 complete exam in your 20s, and 2 in your 30s Vaccine2 Who needs it How often Chickenpox (varicella) All women in this age group who have no record of this infection or vaccine 2doses; the second dose should be given 4 to 8 weeks after the first dose Hepatitis A Women at increased risk for infection should talk with their healthcare provider 2 dosesgiven at least 6 months apart Hepatitis B Women at increased risk for infection should talk with their healthcare provider 3 dosesover 6 months; second dose should be given 1 month after the first dose; the third dose should be given at least 2 months after the second dose and at least 4 months after the first dose Haemophilus influenzaeType B (HIB) Women at increased risk for infection should talk with their healthcare provider 1 to 3 doses Human papillomavirus (HPV) All women in this age group up to age 26 3 doses; the second dose should be given 1 to 2 months after the first dose and the third dose given 6 months after the first dose Influenza (flu) All women in this age group Once a year Measles, mumps, rubella (MMR) All women in this age group who have no record of these infections or vaccines 1 or 2 doses Meningococcal Women at increased risk for infection should talk with their healthcare provider 1 or more doses Pneumococcal conjugate vaccine (PCV13)and pneumococcal polysaccharide vaccine(PPSV23) Women at increased risk for infection should talk with their healthcare provider PCV13: 1 dose ages 19 to 65 (protects against 13 types of pneumococcal bacteria) PPSV23: 1 to2 doses through age 64, or 1 dose at 65 or older (protects against 23 types of pneumococcal bacteria) Tetanus/diphtheria/pertussis (Td/Tdap) booster All women in this age group Td every 10 years, or a one-time dose of Tdap instead of a Td booster after age 18 , then Td every 10 years Counseling Who needs it How often BRCA gene mutation testing for breast and ovarian cancer susceptibility Women with increased risk for having gene mutation When your risk is known Breast cancer and chemoprevention Women at high risk for breast cancer When your risk is known Diet and exercise Women who are overweight or obese When diagnosed, and then at routine exams Domestic violence Women at the age in which they are able to have children At routine exams Sexually transmitted infection prevention Women who are sexually active At routine exams Skin cancer Prevention of skin cancer in fair-skinned adults At routine exams Use of tobacco and the health effects it can cause All women in this age group Every visit 1 According to the ACS, women ages 20 to 39 years should have a clinical breast exam (CBE) as part of their routine health exam every 3 years. Breast self- exams are an option for women starting in their 20s.But the USPSTF does not recommend CBE. Date Last Reviewed: 08/09/201719998566-1346 [employer]. [address] [place] [address]. All rights reserved. This information is not intended as a substitute for professional medical care. Always follow your healthcare professional's instructions. Understanding STDs When it comes to sex, nothing is risk-free. Any sexual contact with the penis, vagina, anus, or mouth can spread a sexually transmitted disease (STD). The only sure way to prevent STDs is abstinence (not having sex). But there are ways to make sex safer. Use a latex condom each time you have sex. And choose your partner wisely. Use condoms for safer sex If you have sex, latex condoms provide the best protection against STDs. Latex condoms stop the exchange of body fluids that carry certain STDs. They also limit contact with affected skin. Be aware though, a condom doesnt cover all skin. So, affected skin that is not covered can still transfer disease. But you re safer with a condom than without one. Use a condom even if you use other control. While control methods like the pill or IUD help prevent , they do not protect against STDs. Choose the right condom Condoms made of latex prevent disease best. If youre allergic to latex, use polyurethane condoms instead. Male condoms fit over the penis. Female condoms line the vagina. Before buying a condom, read the label to be sure it prevents disease. Some novelty condoms dont. The right lubricant helps Buy lubricated condoms or use lubricant. This provides greater comfort and reduces the risk of condom breakage. Use only water-based lubricants. Dont use oil, lotion, or petroleum jelly. They can weaken the condom, causing breakage. Also, you may want to choose lubricants without nonoxynol-9. Its now known that this spermicide does not prevent disease and may cause irritation. Use condoms correctly For condoms to work, they must be used the right way. Keep these tips in mind: Use a new latex condom each time you have sex. Slip the condom on the penis before any contact ismade. When ready to withdraw, hold the rim of the condom as the penis pulls out. This prevents the condom from slipping off. Check the expiration date before using a condom. Dont store condoms in places that can get hot, such as a car or a wallet that is carried in a back pocket. Get to know your partner Safer sex is a process. It involves getting to know your partner and making informed choices. Ask each other how many partners you have had in the past, and how many you have now. Find out if either ofyou has an STD. If you decide to have sex, use a condom each time. Dont stop using condoms unlessyoure sure neither of you has other partners and youve both been tested to confirm you donthave STDs. Then stay free of disease by having sex only with each other (monogamy). Keep your cool Dont let alcohol or drugs cloud your judgment. They could lead you to have sex with someone you wouldnt have chosen if you were sober. Or, you might forget to use a condom. If you do plan to havesex, keep a latex condom with you. Dont wait until youre in the heat of passion to try to findone. Consider abstinence The only way to be sure you wont get an STD is to abstain from sex. Abstinence is a choice that many people make at some point in their lives. Maybe you want to wait until you are sure youre ready before you have sex. Maybe youd like a break from the responsibilities of sex for a while. Or maybe you just want to know your partner better before taking the next step. Abstinence is a choice youcan make now to protect your future. Date Last Reviewed: 10/09/201619996974-7859 [employer]. [address] [place] [address], [place] [address]. All rights reserved. This information is not intended as a substitute for professional medical care. Always follow your healthcare professional's instructions. Understanding HIV and AIDS If you know how HIV (human immunodeficiency virus) can get into your body and what happens once its there, youll be better prepared to protect yourself or others against this virus. A person withHIV can look and feel perfectly healthy. But that person can give HIV to others as soon as he or sheis infected with the virus. Note: Having unsafe or unprotected sex or sharing needles put you at risk for HIV. Talk with your healthcare provider about ways to protect yourself or a loved one from getting HIV. How HIV enters the body HIV is carried in semen, vaginal fluid, blood, and breast milk. During sex, HIV can enter the body through the fragile tissue that lines the vagina, penis, anus,and mouth. During drug use, tattooing, or body piercing, the virus can enter the bloodstream through a shared needle. A mother who has HIV can infect her child during childbirth and through . How HIV infection progresses After HIV enters the body, it attacks the immune system in stages. A person with HIV can infect others once the virus enters the bloodstream. HIV with no symptoms. A person with HIV may have no symptoms for years. A positive blood test for HIV antibodies 6 weeks to 6 months after HIV enters the body may be the only sign of infection. HIV with symptoms.Some people develop an illness similar to mononucleosis (or "mono") 2 to 4 weeksafter the virus enters the body. Symptoms may include swollen lymph glands, chills, fever, night sweats, weakness, weight loss, skin rashes, mouth ulcers, or sore throat. Symptoms may be mild at first and then slowly go away. In a very few individuals, symptoms may get progressively worse and last forlonger and longer periods. AIDS. AIDS is the last stage of HIV infection. Diseases and cancers begin to overcome the body. It is these diseases, not the virus itself, that cause . HIV may also attack the brain and nervous system, causing seizures and loss of memory and body movement. Date Last Reviewed: 09/09/201619998747-0512 [employer]. [address] [place] [address]. All rights reserved. This information is not intended as a substitute for professional medical care. Always follow your healthcare professional's instructions. Eating Heart-Healthy Foods Eating has a big impact on your heart health. In fact, eating healthier can improve several of your heart risks at once. For instance, it helps you manage weight, cholesterol, and blood pressure. Here are ideas to help you make heart- healthy changes without giving up allthe foods and flavors you love. Getting started Talk with your healthcare provider about eating plans, such as the DASH or Mediterranean diet. You may also be referred to a dietitian. Change a few things at a time. Give yourself time to get used to a few eating changes before adding more. Work to create a tasty, healthy eating plan that you can stick to for the rest of your life. Goals for healthy eating Below are some tips to improve your eating habits: Limit saturated fats and trans fats. Saturated fats raise your levels of cholesterol, so keep these fats to a minimum. They are found in foods such as fatty meats, whole milk, cheese, and palm and coconut oils. Avoid trans fats because they lower good cholesterol as well as raise bad cholesterol. Trans fats are most often found in processed foods. Reduce sodium (salt) intake. Eating too much salt may increase your blood pressure. Limit your sodium intake to 2,300 milligrams (mg) per day(the amount in 1 teaspoon of salt), or less if your healthcare provider recommends it. Dining out less often and eating fewer processed foods are two great ways to decrease the amount of salt you consume. Managing calories. A calorie is a unit of energy. Your body bone calories for fuel, but if you eat more calories than your body bone, the extras are stored as fat. Your healthcare provider can help you create a diet plan to manage your calories. This will likely include eating healthier foods as well as exercising regularly. To help you track your progress, keep a diary to record what you eat and how often you exercise. Choose the right foods Aim to make these foods randal of your diet. If you have diabetes, you may have different recommendations than what is listed here: Fruits and vegetables provide plenty of nutrients without a lot of calories. At meals, fill half your plate with these foods. Split the other half of your plate between whole grains and lean protein. Whole grains are high in fiber and rich in vitamins and nutrients. Good choices include whole-wheat bread, pasta, and brown rice. Lean proteins give you nutrition with less fat. Good choices include fish, skinless chicken, and beans. Low-fat or nonfat dairy provides nutrients without a lot of fat. Try low-fat or nonfat milk, cheese, or yogurt. Healthy fats can be good for you in small amounts. These are unsaturated fats , such as olive oil,nuts, and fish. Try to have at least 2 servings per week of fatty fish, such as salmon, sardines, mackerel, rainbow trout, and albacore tuna. These contain omega-3 fatty acids, which are good for your heart. Flaxseed is another source of a heart-healthy fat. More on heart-healthy eating Read food labels Healthy eating starts at the grocery store. Be sure to pay attention to food labels on packaged foods. Look for products that are high in fiber and protein, and low in saturated fat, cholesterol, and sodium. Avoid products that contain trans fat. And pay close attention to serving size. For instance, if you plan to eat two servings, double all the numbers on the label. Prepare food right A chan part of healthy cooking is cutting down on added fat and salt. Look on the internet for lower-fat, lower-sodium recipes. Also, try these tips: Remove fat from meat and skin from poultry before cooking. Skim fat from the surface of soups and sauces. Broil, boil, bake, steam, grill, and microwave food without added fats. Choose ingredients that spice up your food without adding calories, fat, or sodium. Try these items: horseradish, hot sauce, lemon, mustard, nonfat salad dressings, and vinegar. For salt-free herbs and spices, try basil, cilantro, cinnamon, pepper, and joshua. Date Last Reviewed: 08/09/201719995516-5635 [employer]. [address] [place] [address]. All rights reserved. This information is not intended as a substitute for professional medical care. Always follow your healthcare professional's instructions. Understanding USDA MyPlate The USDA (U.S. Department of Agriculture) has guidelines to help you make healthy food choices. These are called MyPlate. MyPlate shows the food groups that make up healthy meals using the image of a place setting. Before you eat, think about the healthiest choices for what to put onto your plate or into your cup or bowl. To learn more about building a healthy plate, visit www.choosemyplate.gov. The food groups Fruits. Any fruit or 100% fruit juice counts as part of the Fruit Group. Fruits may be fresh, canned, frozen, or dried, and may be whole, cut-up, or pureed. Make half your plate fruits and vegetables. Vegetables. Any vegetable or 100% vegetable juice counts as a member of the Vegetable Group. Vegetables may be fresh, frozen, canned, or dried. They can be served raw or cooked and may be whole, cut-up, or mashed. Make half your plate fruits and vegetables. Grains. All foods made from grains are part of the Grains Group. These include wheat, rice, oats,cornmeal, and barley such as bread, pasta, oatmeal, cereal, tortillas, and grits. Grains should be no more than a quarter of your plate. At least half of your grains should be whole grains. Protein. This group includes meat, poultry, seafood, beans and peas, eggs, processed soy products(like tofu), nuts (including nut butters), and seeds. Make protein choices no more than a quarter ofyour plate. Meat and poultry choices should be lean or low fat. Dairy. All fluid milk products and foods made from milk that contain calcium , like yogurt and cheese, are part of the Dairy Group. (Foods that have little calcium, such as cream, butter, and cream cheese, are not part of the group.) Most dairy choices should be low-fat or fat-free. Oils. These are fats that are liquid at room temperature. They include canola , corn, olive, soybean, and sunflower oil. Foods that are mainly oil include mayonnaise, certain salad dressings, and soft margarines. You should have only 5 to 7 teaspoons of oils a day. You probably already get this muchfrom the food you eat. Date Last Reviewed: 06/09/201719996815-1725 [employer]. [address] [place] [address]. All rights reserved. This information is not intended as a substitute for professional medical care. Always follow your healthcare professional's instructions. documented in this encounter Progress Notes Janet Chacko RN - 07/20/2019 10:15 AM CDT34 year old female has been identified by and name. Verbal consent has been obtained by patientto have an injection of Depo Provera, as ordered by the provider. Date of last Depo Provera injection: initial start of Depo Provera Last WWE: 07/20/2019 Encounter Diagnosis: v25.49 The site was cleaned with an alcohol swab and given intramuscularly (IM) in the right gluteus. A band aid dressing was then applied to the injection site. The patient tolerated the procedure well. Advised patient on Calcium intake 500-1200 mg daily. ED warnings given. Patient to return to clinic in 12 weeks for next Depo. Patient verbalized understanding. Janet Chacko RN 07/20/2019 1:13 PM Valentino Lacy, LAUNDRY WASHER - 07/20/2019 10:15 AM CDT Chief complaint: Chief Complaint Patient presents with Well Woman Exam HPI Patient is a LAF here for WWE and contraception management. Patient denies any abdominal/pelvic pain. Patient received pap smear on 09/29/2018, records on file. Patient reports last menses was07/11/2019 and last sexual intercourse was 07/10/2019 with condom. Patient declines need for STDs. Patient has questions concerning weight fluctuating.Patient denies current or past physical, sexual or emotional abuse. Histories OB History Para Term AB Living 3 2 2 1 2 SAB TAB Ectopic Multiple Live Births 1 2 # Outcome Date GA Lbr Gabriel/2nd Weight Sex Delivery Anes PTL Lv 3 Term 04/12/19 37w0d 6 lb 8 oz (2.948 kg) F , L ELOY Complications: Fibroid 2 Term 09/23/16 39w0d 6 lb 2 oz (2.778 kg) F Vag-Spont ELOY Complications: Pre-eclampsia 1 SAB 09/12/14 Past Medical History: Diagnosis Date Hypothyroidism Ovarian cyst Family History Problem Relation Age of Onset Hypertension Mother Diabetes Mother Other - see comments Mother autoimmune hepatitis Diabetes Father Hypertension Father Breast Cancer Maternal Aunt Diabetes Paternal Grandmother Diabetes Sister Arthritis NoFHx Asthma NoFHx defects NoFHx Colon Cancer NoFHx Ovarian Cancer NoFHx Uterine Cancer NoFHx Cancer NoFHx Depression NoFHx Genetic NoFHx Heart NoFHx High cholesterol NoFHx Mental retardation NoFHx Neurological NoFHx Osteoporosis NoFHx Psychiatry NoFHx Family Status Relation Name Status Mo Alive Fa Alive MAunt Alive PGMo Alive Sis Alive Bro Alive MUnc Alive PAunt Alive PUnc Alive MGMo Alive MGFa Alive PGFa Alive NoFHx (Not Specified) Past Surgical History: Procedure Laterality Date SECTION 04/12/2019 OVARIAN CYSTECTOMY 2010 Social History Socioeconomic History Marital status: Single Spouse name: Not on file Number of children: Not on file Years of education: Not on file Highest education level: Not on file Occupational History Not on file Social Needs Financial resource strain: Not on file Food insecurity: Worry: Not on file Inability: Not on file Transportation needs: Medical: Not on file Non-medical: Not on file Tobacco Use Smoking status: Never Smoker Smokeless tobacco: Never Used Substance and Sexual Activity Alcohol use: No Alcohol/week: 0.0 oz Drug use: No Sexual activity: Yes Partners: Male control/protection: None Comment: last sexual intercourse 07/10/2019 Lifestyle Physical activity: Days per week: Not on file Minutes per session: Not on file Stress: Not on file Relationships Social connections: Talks on phone: Not on file Gets together: Not on file Attends mu-ism service: Not on file Active member of club or organization: Not on file Attends meetings of clubs or organizations: Not on file Relationship status: Not on file Intimate partner violence: Fear of current or ex partner: Not on file Emotionally abused: Not on file Physically abused: Not on file Forced sexual activity: Not on file Other Topics Concern Not on file Social History Narrative Patient lives with parents. Jain preference Sikhism. Pt denies current or past physical, sexual or emotional abuse. Social History Substance and Sexual Activity Sexual Activity Yes Partners: Male control/protection: None Comment: last sexual intercourse 07/10/2019 Labs No new labs Radiology No new radiology. Allergies Tawnya is allergic to hydrocodone and pcn [penicillins]. Medications Tawnya has a current medication list which includes the following prescription(s ): ibuprofen and multivitamin. Review of Systems Constitutional: Negative for activity change, appetite change, fatigue, unexpected weight change, weight gain and weight loss. HENT: Negative for sore throat. Eyes: Negative for visual disturbance. Respiratory: Negative for cough and shortness of breath. Breasts: Negative for discharge, mass, pain and unequal size. Cardiovascular: Negative for chest pain, palpitations and leg swelling. Gastrointestinal: Negative. Negative for abdominal pain, anal bleeding, blood in stool, constipation, diarrhea, nausea, rectal pain and vomiting. Genitourinary: Negative for bladder incontinence, dysuria, urgency, flank pain, vaginal bleeding, vaginal discharge, genital sores, vaginal pain and pelvic pain. Skin: Negative for color change and rash. Neurological: Negative. Negative for dizziness, syncope and headaches. Psychiatric/Behavioral: Negative for confusion, self-injury and sleep disturbance. The patient is not nervous/anxious. Hematological: Negative for cold intolerance and heat intolerance. Endocrine: Negative for hair loss, cold intolerance, heat intolerance, weight gain and weight loss. BP 124/81 (BP Location: Left arm, Patient Position: Sitting, BP CUFF SIZE: Adult Large) | Pulse 86| Temp 36.6 C (97.8 F) (Oral) | Resp 16 | Ht 4' 11 " (1.499 m) | Wt 213 lb 4 oz (96.7 kg) | BMI 43.07 kg/m Pregravid BMI: Could not be calculated Physical Exam Vitals reviewed. Constitutional: She is oriented to person, place, and time. She appears well- developed, well-nourished and well-groomed. She has no deformities. Neck: No tenderness and no mass. No thyroid nodules and no thyromegaly palpated. Cardiovascular: Regular rate and rhythm. No murmur auscultated. Pulmonary/Chest: Breath sounds clear to auscultation. Normal inspiratory effort. Abdominal: Abdomen is soft. No mass palpated. No tenderness present. There is no guarding. Neuro/Psychiatric: She has a normal mood and affect. She is oriented to person, place, and time. Skin: Skin normal. No lesion and no rash present. Breast: Right breast exhibits no mass, no nipple discharge and no tenderness. Left breast exhibits no mass, no nipple discharge and no tenderness. Normal left breast and normal right breast Rectal: normal rectum External genitalia: Normal external genitalia appropriate for age. Normal hair distribution. No labial lesion. Horseback Excavator present for the exam: KELBY Bell student present Vagina:Normal vagina. No lesion inspected. No abnormal vaginal discharge found. Cervix: Normal cervix. No lesion. No tenderness and no discharge present. Uterus: Uterus is normal size and non-tender. Normal uterus Adnexa: Right adnexa without tenderness or mass. Left adnexa without tenderness or mass. Normal leftadnexa and normal right adnexa Anus/perineum: Normal perineum. Assessment/Plan Rubella: N/A, resources given VZV: resources given BMI: 43.07 Td: resources given Pap Smear: , scanned unto chart Gardasil: N/A, resources given Mammogram: N/A Guaiac:N/A Colonoscopy:N/A Well woman exam (primary encounter diagnosis) Comment: Routine WWE Plan: Denies zika virus risk, signs and symptoms such as fever,rash,joint pain, conjunctivitis (red eyes), muscle pain, headaches; outside [place] travel to areas affected by zika, and FOB exposure to zika.Educated on use of mosquito repellent. Encounter for initial prescription of contraceptives, unspecified contraceptive Comment: patient desires to start Depo Provera Plan: POCT TEST, medroxyPROGESTERone (DEPO-PROVERA) injection 150 mg Patient desires Dep Provera for contraception. Provider has reviewed risks , benefits and alternatives contraception methods. Provider has also reviewed use, side effects and effectiveness of desires BCM vs other BCM. Encouraged abstinence until menses. Encouraged use of condoms as back up x 1 month and for safer sex. Enlarged uterus History of uterine fibroid Comment: enlarged uterus 12cm, no pain no abnormal bleeding. Plan: will continue to monitor Morbid obesity BMI 40.0-44.9, adult Comment: BMI: 43.07 Plan: Patient encouraged to limit weight gain and sensible diet. Return to clinic in 12wks for WWE. Discussed treatment options. Medications as ordered. Reviewed patient instructions and provided printed copy. This visit did not involve counseling and coordination that comprised more than 50% of the visit time. KELBY Mayo 07/20/2019 1:02 PM Janet Ulrich RN - 07/20/2019 10:15 AM CDT34 year old presented to the clinic for WWE. 1) Previous BCM: none 2) Desired BCM: Depo provera 3) LMP: 07/11/2019 4) Last [address]: 07/10/2019 5) Last Pap: Results: neg HPV Results: neg (results in chart) 6) Tdap in last 10 years? Yes, per pt 7) HPV Vaccines: n/a 8) C/O Requesting depo provera, weight fluctuating. 9) Patient denies history of physical, emotional, or sexual abuse. Patient states she currently feels safe at home. documented in this encounter Plan of Treatment Date Type Specialty Care Team Description 10/12/2019 Office Visit [facility] Sherif Nadiaradha Hess, LAUNDRY WASHER [address] [place], [place] [address] Health Maintenance Due Date Last Done Comments DTaP,Tdap,and Td Vaccines (1 - 2006 Tdap) PAP SMEAR 09/03/2018 09/03/2015 INFLUENZA VACCINE (#1) 2019 09/03/2015 PNEUMOCOCCAL 0-64 YEARS COMBINED Aged Out No longer eligible based on SERIES patient's age to complete this topic documented as of this encounter Procedures Procedure Name Priority Date/Time Associated Diagnosis Comments POCT Routine 07/20/2019 11:27 Encounter for initial Results for this TEST AM CDT prescription of procedure are in contraceptives, the results unspecified section. contraceptive documented in this encounter Results POCT TEST (07/20/2019 11:27 AM CDT) POCT PREG Negative On board controls acceptable Yes with C Line POCT PREG LOT # POCT PREG TEST DATE Specimen Urine - URINE, CLEAN CATCH documented in this encounter Visit Diagnoses Diagnosis Well woman exam - Primary Routine general medical examination at a health care facility Encounter for initial prescription of contraceptives, unspecified contraceptive Enlarged uterus Hypertrophy of uterus Morbid obesity BMI 40.0-44.9, adult Body Mass Index 40.0-44.9, adult History of uterine fibroid Personal history of other genital system and obstetric disorders documented in this encounter Administered Medications Medication Order MAR Action Action Date Dose Rate Site medroxyPROGESTERone Given 07/20/2019 11:40 150 mg Right (DEPO-PROVERA) injection 150 AM CDT Dorsogluteal-IM mg 150 mg, Intramuscular, [id number], 4 doses, First dose on Thu07/20/19 at 1130, Last dose on Thu03/28/20 at 1130, Routine documented in this encounter Insurance Payer Benefit Plan Subscriber ID Effective Phone Address Type / Group Dates [facility] xxxxxxxxx 2019-Lyle [phone] Medicaid WOMEN nt [address] [place] [address] documented as of this encounter Advance Directives Name Relationship Healthcare Agent Relationship Communication Cristy Vogel Sibling Primary healthcare agent
--- OUTSIDE RECORDS SUMMARY | 2019-09-19 04:21 | XMS REPORT | Summary of Care ---
:1985 Author Organization [facility] Address [address] [place] [address] Care Team Providers Name Role Phone Valentino Gorman ROCK WOOL APPLICATOR Primary Care Provider Reason for Visit Reason Comments Well Woman Exam Encounter Details Date Type Department Care Team Description 07/20/2019 Office Visit [facility] Valentino Gorman Well woman exam (Primary Dx); KELBY Keller Encounter for initial prescription of contraceptives, unspecified contraceptive; [address] [place] [address] Enlarged uterus; [place], [place] Morbid obesity; [id number] [place] [address] BMI 40.0-44.9, adult; [phone] History of uterine fibroid Allergies Active Allergy [...] Facility Administered Medication medroxyPROGESTERone 150 mg IM [id number] 07/20/2019 06/20/2020 Active (DEPO-PROVERA) injection 150 mgIndications: [...] This exam may be done by a bonding machine operator, family healthcare provider, nurse practitioner, nurse ash handler, or specially trained nurse. Yearly breast exams [...] Guidelines for having clinical breast exams The [employer] recommends that [...] is best for you. Date Last Reviewed: 06/09/201719997820-0179 [employer]. [address] [place] [address]. All rights reserved. This information is not [...] breast self-examination (BSE). These experts include the [employer], the U.S. Preventive Services Task Force, and the [employer] Gynec[employer]. Some experts [...] they are not cancer. Date Last Reviewed: 06/09/201719995999-0066 [employer]. [address] [place] [address], [place] [address]. All rights reserved. This information is not [...] does not recommend CBE. Date Last Reviewed: 08/09/201719997746-2168 [employer]. [address] [place] [address]. All rights reserved. This information is not [...] to protect your future. Date Last Reviewed: 10/09/201619993575-6414 [employer]. [address] [place] [address], [place] [address]. All rights reserved. This information is not [...] memory and body movement. Date Last Reviewed: 09/09/201619997236-[address] [employer] [place] [address]. All rights reserved. This information is not [...] cinnamon, pepper, and joshua. Date Last Reviewed: 08/09/201719998795-6427 [employer]. [address] [place] [address]. All rights reserved. This information is not [...] the food you eat. Date Last Reviewed: 06/09/201719992982-[address] [employer] [place] [address]. All rights reserved. This information is not [...] Chacko RN 07/20/2019 1:13 PM Valentino Lacy, ROCK WOOL APPLICATOR - 07/20/2019 10:15 AM CDT Chief complaint: [...] file Gets together: Not on file Attends denominational service: Not on file Active member of [...] Social History Narrative Patient lives with parents. Mu-Ism preference Protestant. Pt denies current or past physical, sexual [...] age. Normal hair distribution. No labial lesion. Etl Developer present for the exam: KELBY Bell student [...] Depo provera 3) LMP: 07/11/2019 4) Last [place]: 07/10/2019 5) Last Pap: Results: neg HPV [...] Office Visit [facility] Sherif Nadiaradha Hess, ROCK WOOL APPLICATOR [address] [place], [place] [id number] Health Maintenance Due Date Last Done Comments [...] AM CDT Dorsogluteal-IM mg 150 mg, Intramuscular, [id number], 4 doses, First dose on Thu07/20/19 at 1130, Last dose on Thu03/28/20 at 1130, Routine documented in this encounter Insurance Payer Benefit Plan Subscriber ID Effective Phone Address Type / Group Dates [facility] xxxxxxxxx 2019-Lyle [phone] Medicaid WOMEN nt [address] [place] [address] documented as of this encounter Advance Directives Name Relationship Healthcare Agent Relationship Communication Cristy Vogel Sibling Primary healthcare agent
== END 2019-09-15 17:53 | disposition home or self-care (01) ==
LOC: ER 14:38
DX: N39.0 Urinary tract infection, site not specified (principal); Z88.0 Allergy status to penicillin; Z88.6 Allergy status to analgesic agent
CPT/HCPCS: 87088; 85025; 87086; 80048; 36415; 81025; 80076; 83690; 74177; Q9967; J7030; 81003; 81015; 87077; 87186; 99284